=== PATIENT | male | born 1980 | race Caucasian/White ===

== ENCOUNTER 2023-06-03 06:31 | Emergency (ER) | payer SELFPAY ==
[2023-06-03] VITALS (24 sets, daily range): BP systolic 152–173; BP diastolic 93–118; PULSE 78–116; RESP 11–25; TEMP 36.5–36.9; O2SAT 100
--- NOTE | ~2023-06-03 | CT_ITS ---
Non-contrast Head CT History: Head injury Technique: Axial non-contrast imaging of the brain was performed. Dose reduction technique was used on this scan by utilizing automated exposure control and iterative reconstruction technique. The dose -length product (DLP) was 605.33 mGy-cm. Findings: There is no evidence of intracranial hemorrhage, mass lesion, or acute infarct. Brain par enchyma appears normal. The ventricles and subarachnoid spaces are normal in size. The calvarium ap pears normal. The visualized paranasal sinuses and mastoid air cells are clear. Impression: No significant abnormality seen. Reviewed, dictated and finalized at [facility]. [employer] Impression: No significant abnormality seen.
--- NOTE | ~2023-06-03 | CT_ITS ---
CT Facial Bones and Cervical Spine Clinical Indication: Injury Technique: Contiguous axial scans were obtained through the facial bones and cervical spine followed by coronal and sagittal reconstructions. Dose reduction technique was used on this scan by utilizing automated exposure control and iterative reconstruction technique. The dose-length product (DLP) was 253.67 mGy-cm. Findings: CT facial bones: There is a comminuted, mildly displaced fracture of the left mandibular condyle, wit h intra-articular extension at the articular surfaces TMJ.. The visualized paranasal sinuses are amie r. Intraorbital soft tissues appear normal. There is soft tissue swelling over the chin and lower lip , with possible small radiopaque foreign bodies at the lip. CT cervical spine: No fractures or subluxation. Unremarkable visualized bony structures. The interv ertebral disc spaces are preserved. No prevertebral soft tissue swelling. Impression: Comminuted, mildly displaced fracture of the left mandibular condyle with intra-articular extension. Soft tissue swelling over the chin and lower lip with possible small radiopaque foreign bodies. No fracture or subluxation of the cervical spine. Reviewed, dictated and finalized at [facility]. UITING CONSULTANT Impression: Comminuted, mildly displaced fracture of the left mandibular condyle with intra -articular extension. Soft tissue swelling over the chin and lower lip with possible small radiopaque foreign bodies. No fracture or subluxation of the cervical spine.
--- NOTE | ~2023-06-03 | XR_ITS ---
Clinical Indication: Syncope PA and lateral views of the chest: Comparison: None Findings: The lungs are clear, without evidence of focal consolidation or pleural effusion. Cardiome diastinal silhouette is within normal limits. Bones and soft tissues are unremarkable. Impression: Normal chest. Reviewed, dictated and finalized at location . [employer] Impression: Normal chest.
--- NOTE | 2023-06-03 06:43 | ECG_ITS ---
Measurements Intervals [place] Rate: 98 P: 71 LA: 152 QRS: 46 QRSD: 89 T: 70 QT: 367 QTc: 471 Interpretive Statements SINUS RHYTHM BASELINE ARTIFACT PRESENT IN LEAD V3 NO PREVIOUS ECG AVAILABLE FOR COMPARISON Electronically Signed On 06-03-2023 15:42:09 HEAD SOFT SUGAR OPERATOR by Monique Black M.D.
[2023-06-03 06:52] LABS: Basophils Absolute Auto 0.1 K/mm3 (0.0-0.1); Basophils Percent Auto 0.5 % (0.2-1.2); Eosinophils Percent Auto 0.1 % (0-4.4); Hematocrit 41.6 % (42.0-52.0); Hemoglobin 13.3 g/dL (14.0-18.0); Immature Granulocyte Absolute 0.04 K/mm3 (0.00-0.031); Immature Granulocyte Percent A 0.4 % (0-0.5); Lymphocytes Absolute Auto 1.51 K/mm3 (0.9-3.2); Lymphocytes Percent Auto 15.2 % (18.3-44.2); Mean Corpuscular Hemoglobin 34.5 pg (26-34); Mean Corpuscular Volume 108.1 fl (80-100); Monocytes Percent Auto 10.2 % (2.6-8.5); Neutrophils Absolute Auto 7.3 K/mm3 (1.3-6.7); Neutrophils Percent Auto 73.6 % (45.5-73.1); Platelet Count Result 207 k/mm3 (150-375); Red Blood Count 3.85 M/mm3 (4.6-6.20); Red Cell Distribution Width 11.9 % (11.5-14.5); White Blood Count 9.9 K/mm3 (4.5-10.0)
--- NOTE | 2023-06-03 07:05 | ED.SYNCOPE ---
HPI - Syncope General Chief Complaint: Syncope Stated Complaint: syncope yesterday, facial injury Time Seen by Provider: 06/03/23 06:56 History of Present Illness HPI narrative: This is a 42-year-old male, history of hypertension, presents emergency department after syncopal episode yesterday. Patient states he in the preceding 2-3 days, he had some episodes of nonbloody loose stools and occasional cough. Yesterday, he felt lightheaded, loss consciousness and fell in a parking. He states he cut his chin and broke several teeth. He denies associated chest pain, palpitations, weakness or numbness. He now complains of throbbing headache. Related Data Allergies Allergy/AdvReac Type Severity Reaction Status Date / Time latex Allergy Rash Verified 06/03/23 06:33 Review of Systems Review of Systems: CONSTITUTIONAL: Denies fever, chills, or sweats. ENT: Laceration of the lip and chin Denies rhinorrhea, congestion, sore throat, or otalgia. CARDIOVASCULAR: Denies chest pain, palpitations, or edema. RESPIRATORY: Denies cough or dyspnea. GASTROINTESTINAL: Denies abdominal pain, nausea, vomiting, or diarrhea. GENITOURINARY: Denies dysuria or hematuria. SKIN: Denies rash or itching. MUSCULOSKELETAL: Denies back pain, joint pain, or myalgia. NEUROLOGIC: Headache Denies numbness, dizziness, or weakness. PSYCHIATRIC: Denies anxiety or depression. PMFSH Past Medical History Medical History Hypertension Surgical History Surgical History No significant past surgical history Social History Social History Smoking status: Current every day smoker Alcohol intake: current Drinks per week: 21 Substance use: current Substance use type: marijuana Exam Narrative: GENERAL: Well-developed, well-nourished, and in no acute distress. HEAD: Normocephalic, there is a 1/2 cm laceration to the inferior aspect of the midline chin. EYES: PERRLA and EOMI. ENT: Nares clear, no rhinorrhea or epistaxis. Mucous membranes moist. The bilateral upper incisors are fractured without exposed dentin. Oropharynx without tonsillar hypertrophy exudate or other lesions. Bilateral TMs pearly taylor nonbulging. There is a laceration of the inner lower lip NECK: Supple. No midline spine tenderness to palpation, step-off or crepitus CHEST: Clear to auscultation. No respiratory distress. No wheezes rales or rhonchi HEART: Regular rate and rhythm. No murmur heard. Normal peripheral pulses. ABDOMEN: Soft, nontender, nondistended, normal active bowel sounds. EXTREMITIES: Normal range of motion. No edema. SKIN: Warm, dry, no rash. NEURO: Alert and oriented x3. No focal deficit. Moving all 4 limbs spontaneously PSYCH: Normal mood and affect. Course Course Emergency Course: 10:00 - CT head negative for intracranial hemorrhage. CT face demonstrates a left mandible condyle fracture but is otherwise unremarkable. Chemistries demonstrate mild AST/ALT elevation of 28/64 respectively but is otherwise unremarkable. Cbc demonstrates mild anemia with hemoglobin of 13.3 but is otherwise unremarkable. EKG not concerning for arrhythmia or ischemia. Chest x-ray not concerning for acute cardiopulmonary process. CT cervical spine concerning for fracture or dislocation. I suspect the patient's syncopal episode is related to dehydration from diarrhea. He was given IV antibiotics. He tolerated a p.o. challenge without difficulty. Will discharge with oral antibiotics, pain medications and referral for facial surgery. I discussed the findings and recommendations with the patient. Discussed return and emergency precautions including signs/symptoms of airway compromise. The patient voiced understanding and agreement with the plan. All questions answered to his satisfaction. Vital Signs Vital signs: Vital S
[2023-06-03 07:08] LABS: Alanine Aminotransferase 64 U/L (6-50); Alkaline Phosphatase 155 U/L (38-126); Anion Gap 22 mmol/L (8-16); Aspartate Amino Transferase 128 U/L (17-59); Bilirubin,Total 3.2 mg/dL (0.2-1.3); Blood Urea Nitrogen 20 mg/dL (9-20); Calcium 9.9 mg/dL (8.4-10.2); Carbon Dioxide 17 mmol/L (22-30); Chloride 98 mmol/L (98-107); Estimated CRCL calculation 99 ml/min; Estimated Glomerular Filt Rate > 60; Glucose 69 mg/dL (65-110); Potassium 4.2 mmol/L (3.4-5.0); Sodium 137 mmol/L (137-145)
[2023-06-03 07:15] LABS: Platelet Estimate Adequate (Adequate); Schistocytes None Seen (NORMAL); Stomatocytes 1+ (NORMAL)
[2023-06-03] MEDS: SODIUM CHLORIDE 0.9% IV 1,000 ML 999 ML IV CONT (07:34)
[2023-06-03] MEDS: ACETAMINOPHEN 500 MG TABLET 1000 MG PO (07:34)
[2023-06-03] MEDS: ONDANSETRON INJ 4 MG/2 ML VIAL IV PUSH (07:47)
[2023-06-03] MEDS: KETOROLAC 15 MG/ML VIAL (*BKC) IV PUSH (08:09)
[2023-06-03] MEDS: TETANUS,DIPHTHERIA,AC PERTUSSIS ADULT (0.5 ML) BOOSTRIX IM (11:30)
[2023-06-03] MEDS: PROCHLORPERAZINE EDISYLATE 10 MG/2 ML VIAL IV PUSH (11:30)
[2023-06-03] MEDS: oxyCODONE/ACETAMINOPHEN (*CRX) 5-325 MG TABLET 1 TABLET PO (11:31)
== END 2023-06-03 11:47 | disposition home or self-care (01) ==
PROVIDERS: Emergency Medicine; Emergency Provider Preventive Medicine Aerospace Medicine
DX: S06.0X9A Concussion with loss of consciousness of unspecified duration, initial encounter (principal); S01.81XA Laceration without foreign body of other part of head, initial encounter; S01.511A Laceration without foreign body of lip, initial encounter; S02.5XXA Fracture of tooth (traumatic), initial encounter for closed fracture; S02.612A Fracture of condylar process of left mandible, initial encounter for closed fracture; R55 Syncope and collapse; Z23 Encounter for immunization; I10 Essential (primary) hypertension; F17.200 Nicotine dependence, unspecified, uncomplicated; W18.39XA Other fall on same level, initial encounter
CPT/HCPCS: 36415; 70450; 70486; 71046; 72125; 80053; 85025; 90471; 90715; 93005; 96361; 96365; 96375; 99284; A9270; J0780; J1885; J2405; J2540; J7030

== ENCOUNTER 2023-08-02 01:00 | Inpatient (IN) | payer BC, SELFPAY ==
[2023-08-02] VITALS (24 sets, daily range): BP systolic 117–164; BP diastolic 77–96; PULSE 76–113; RESP 10–24; TEMP 36.2–36.9; O2SAT 91–100; BMI 18.4
--- NOTE | ~2023-08-02 | CT_ITS ---
Non-contrast Head CT History: Syncope COMPARISON: 229.4 Technique: Axial non-contrast imaging of the brain was performed. Dose reduction technique was used on this scan by utilizing automated exposure control and iterative reconstruction technique. The dose -length product (DLP) was 756.67 mGy-cm. Findings: There is no evidence of intracranial hemorrhage, mass lesion, or acute infarct. Brain par enchyma appears normal. The ventricles and subarachnoid spaces are normal in size. The calvarium ap pears normal. The visualized paranasal sinuses and mastoid air cells are clear. Impression: No significant abnormality seen. Reviewed, dictated and finalized at location . Impression: No significant abnormality seen.
--- NOTE | ~2023-08-02 | XR_ITS ---
AP view of the pelvis and AP and lateral views of the left hip Clinical history: Pain Findings: There is a comminuted intertrochanteric fracture of the proximal left femur, minimally disp laced.. Bilateral hip and SI joint spaces are preserved. Soft tissues are unremarkable. Impression: Comminuted intertrochanteric fracture of the proximal left femur. Reviewed, dictated and finalized at location . Impression: Comminuted intertrochanteric fracture of the proximal left femur.
--- NOTE | ~2023-08-02 | CT_ITS ---
Noncontrast CT scan of the cervical spine Technique: Multiple contiguous axial [address] images of the cervical spine were obtained and rec onstructed in 2D sagittal and coronal planes on the acquisition scanner. Dose reduction technique was used on this scan by utilizing automated exposure control, adjustment of the mA and/or kV according to patient size. The dose-length product (DLP) was 305.45 mGy-cm. Clinical History: Pain COMPARISON: 06/03/2023 Findings: No fractures or dislocations. Unremarkable visualized bony structures. The intervertebral disc spaces are preserved. No prevertebral soft tissue swelling. Impression: No fracture or subluxation of the cervical spine. Reviewed, dictated and finalized at location . Impression: No fracture or subluxation of the cervical spine.
--- NOTE | ~2023-08-02 | CT_ITS ---
EXAMINATION: CT hip LT wo con DATE: 08/02/2023 08:25 INDICATION: Left hip fracture. TECHNIQUE: Computed tomography (CT) of the left hip was performed without intravenous contrast. Autom ated exposure control and iterative reconstruction technique were employed. The dose-length product w as 416.19 mGy-cm. COMPARISON: Left hip radiograph 08/02/2023 FINDINGS: There is a left inguinal hernia containing fat. There is a comminuted basicervical fracture of the left femoral neck. The greater and lesser trochanters remain attached to the main distal frac ture fragment. The main distal fracture fragment demonstrates impaction and 20 degrees varus angulati on. There is mild left hip osteoarthritis. IMPRESSION: 1. Comminuted basicervical fracture of left femoral neck. 2. Mild left hip osteoarthritis. Reviewed, dictated and finalized at location A.
--- NOTE | ~2023-08-02 | XR_ITS ---
EXAMINATION: XR surgery orthopedic DATE: 08/02/2023 16:14 CDT INDICATION: LEFT IT NAIL . TECHNIQUE: 7 fluoroscopic images of the left hip were obtained during left intertrochanteric nail jeyson cement, performed by Larry Mcguire MD. I was not present during the procedure. Fluoroscopy exposure t helen was 3 minutes 6.2 seconds. Air Kerma 32.261 mGy. DAP 0.6 395 mGym2. COMPARISON: CT left hip 08/02/2023 FINDINGS/IMPRESSION: Fluoroscopic documentation of left intertrochanteric nail placement. Please refer to the operative no te for complete procedural details . Reviewed, dictated and finalized at location K.
--- NOTE | ~2023-08-02 | XR_ITS ---
Portable chest x-ray Comparison: 06/03/2023 Clinical History: Syncope Findings: Lungs are clear, without focal consolidation or pleural effusion. Cardiomediastinal silhou ette is stable. Bones and soft tissues are unremarkable. Impression: Clear lungs. Reviewed, dictated and finalized at location . Impression: Clear lungs.
--- NOTE | 2023-08-02 01:03 | PC.NURSE ---
Bedside glucose is 328.
--- NOTE | 2023-08-02 01:10 | ECG_ITS ---
SEE SCANNED COPY FOR CONFIRMED REPORT MTDD
--- NOTE | 2023-08-02 01:23 | ED.SYNCOPE ---
HPI - Syncope General Chief Complaint: Syncope Stated Complaint: SYNCOPE/COLLAPSE, HIP PAIN Time Seen by Provider: 08/02/23 01:10 Source: patient Mode of arrival: EMS Limitations: no limitations History of Present Illness HPI narrative: This is a 42 year old male that presents to the ER for syncopal episode. Reports he was taking the trash out and passed out. He does not believe he was having any symptoms prior to this. Reports a similar episode a couple of months ago. Reports right hip pain, he has not been able to ambulate due to this. He is unsure if he hit his head. No other injuries or focal areas of pain. Denies chest pain, shortness of breath, vomiting, numbness or weakness. Related Data Allergies Allergy/AdvReac Type Severity Reaction Status Date / Time latex Allergy Rash Verified 08/02/23 01:01 Review of Systems Review of Systems: CONSTITUTIONAL: Denies fever EYES: Denies visual changes CARDIOVASCULAR: Denies chest pain, palpitations RESPIRATORY: Denies dyspnea. GASTROINTESTINAL: Denies vomiting MUSCULOSKELETAL: Reports joint pain, and myalgia. NEUROLOGIC: Denies numbness, or weakness. All systems reviewed & are unremarkable except as noted in HPI and below PMFSH Past Medical History Medical History Hypertension Surgical History Surgical History No significant past surgical history Social History Social History Smoking status: Current every day smoker Alcohol intake: current Drinks per week: 21 Substance use: current Substance use type: marijuana Exam Narrative: GENERAL: Well-appearing, well-nourished, and in mild acute distress due to pain HEAD: Normocephalic, atraumatic. EYES: PERRLA and EOMI. ENT: Nares clear, no rhinorrhea or epistaxis. Mucous membranes moist. Oropharynx without tonsillar hypertrophy exudate or other lesions. Bilateral TMs pearly taylor non-bulging NECK: Supple. No adenopathy or masses. CHEST: Clear to auscultation. No respiratory distress. No wheezes rales or rhonchi HEART: Regular rate and rhythm. No murmur heard. Normal peripheral pulses. EXTREMITIES: Normal range of motion, except decreased active ROM in the left hip. No edema. Normal DP pulse. Normal sensation SKIN: Warm, dry, no rash. NEURO: No focal deficits. Alert and oriented x3. CN II-XII grossly intact PSYCH: Normal mood and affect Course Course Emergency Course: Patient updated on his workup and need for admission Consultations Consultation #1: Spoke with hospitalist about patient and workup who accepts admission. Will continue fluids at 150mls/hr Date: 08/02/23 Consultation #2: Spoke with Dr Mcguire who will consult. Will make patient NPO and add on type and screen Date: 08/02/23 Vital Signs Vital signs: Vital Signs Temperature 98.2 F 08/02/23 00:57 Pulse Rate 99 08/02/23 00:57 Respiratory Rate 24 H 08/02/23 00:57 Blood Pressure 143/88 H 08/02/23 00:57 Pulse Oximetry 100 08/02/23 00:57 Oxygen Delivery Room Air 08/02/23 00:57 Temperature 98.2 F 08/02/23 00:57 Pulse Rate 107 H 08/02/23 03:00 Respiratory Rate 14 08/02/23 03:00 Blood Pressure 164/94 H 08/02/23 03:00 Pulse Oximetry 98 08/02/23 03:00 Oxygen Delivery Room Air 08/02/23 01:02 MDM - Syncope MDM Narrative Medical decision making narrative: Patient presents to the emergency department after syncopal episode today with left hip pain. Patient is neurologically intact. His vitals are stable. CBC without leukocytosis. Shows normocytic anemia hemoglobin of 12.1. Metabolic panel with evidence of dehydration. Patient hydrated with 2 L of IV fluids in the ED. chest x-ray without acute cardiopulmonary abnormality. Left hip x-ray shows comminuted angulated left intertrochanteric fracture. CT brain and cervical spine without acut
[2023-08-02 01:28] LABS: Basophils Percent Auto 0.5 % (0.2-1.2); Hemoglobin 12.1 g/dL (14.0-18.0); Immature Granulocyte Absolute 0.03 K/mm3 (0.00-0.031); Immature Granulocyte Percent A 0.4 % (0-0.5); Lymphocytes Absolute Auto 1.22 K/mm3 (0.9-3.2); Lymphocytes Percent Auto 14.9 % (18.3-44.2); Mean Corpuscular HGB Conc 34.6 g/dl (32-36); Mean Corpuscular Hemoglobin 34.5 pg (26-34); Mean Corpuscular Volume 99.7 fl (80-100); Mean Platelet Volume 11.1 fl (7.4-10.4); Monocytes Absolute Auto 0.9 K/mm3 (0.1-0.6); Monocytes Percent Auto 11.3 % (2.6-8.5); Neutrophils Percent Auto 72.9 % (45.5-73.1); Platelet Count Result 161 k/mm3 (150-375); Red Blood Count 3.51 M/mm3 (4.6-6.20); Red Cell Distribution Width 11.5 % (11.5-14.5); White Blood Count 8.2 K/mm3 (4.5-10.0)
[2023-08-02 01:43] LABS: Alanine Aminotransferase 53 U/L (6-50); Albumin Level 4.5 g/dL (3.5-5.1); Alkaline Phosphatase 119 U/L (38-126); Anion Gap 20 mmol/L (4-12); Aspartate Amino Transferase 108 U/L (17-59); Bilirubin,Total 2.3 mg/dL (0.2-1.3); Blood Urea Nitrogen 29 mg/dL (9-20); Carbon Dioxide 18 mmol/L (22-30); Chloride 93 mmol/L (98-107); Estimated CRCL calculation 63 ml/min; Estimated Glomerular Filt Rate 55; Glucose 278 mg/dL (65-110); Potassium 4.4 mmol/L (3.4-5.0); Sodium 131 mmol/L (137-145)
[2023-08-02 01:43] LABS: Ethanol < 10 mg/dL (<10)
[2023-08-02] MEDS: MORPHINE SULFATE (*CRX) 4 MG/ML INJ IV PUSH (01:46)
[2023-08-02] MEDS: SODIUM CHLORIDE 0.9% IV 1,000 ML 999 ML IV CONT ×2 (01:47→02:13)
[2023-08-02 01:52] LABS: Creatine Kinase 113 U/L (55-170)
[2023-08-02] MEDS: HYDROmorphone HCL INJ (*CRX) 1 MG/ML SYR IV PUSH ×6 (02:14→18:56)
[2023-08-02 02:28] LABS: Troponin I < 0.012 ng/mL (0.000-0.034)
[2023-08-02 03:10] LABS: Beta-Hydroxybutyrate/Acetoacetate 2.38 mmol/L (0.02-0.27)
[2023-08-02] MEDS: SODIUM CHLORIDE 0.9% IV 1,000 ML 150 ML IV CONT ×2 (03:12→13:32)
[2023-08-02 03:13] LABS: Magnesium 1.1 mg/dL (1.6-2.3); Phosphorus 3.4 mg/dL (2.5-4.5)
[2023-08-02 03:14] LABS: Hemoglobin A1C 7.6 % (<5.7)
[2023-08-02 03:19] LABS: Alanine Aminotransferase 47 U/L (6-50); Albumin Level 4.3 g/dL (3.5-5.1); Alkaline Phosphatase 102 U/L (38-126); Anion Gap 12 mmol/L (4-12); Aspartate Amino Transferase 97 U/L (17-59); Bilirubin,Total 2.6 mg/dL (0.2-1.3); Blood Urea Nitrogen 28 mg/dL (9-20); Carbon Dioxide 23 mmol/L (22-30); Chloride 101 mmol/L (98-107); Estimated CRCL calculation 73 ml/min; Estimated Glomerular Filt Rate > 60; Glucose 187 mg/dL (65-110); Potassium 4.1 mmol/L (3.4-5.0); Sodium 136 mmol/L (137-145)
[2023-08-02] MEDS: MAGNESIUM SULF 2 GM/WATER 50ML 2 GM/50 ML BAG IVPB ×2 (03:27→05:46)
[2023-08-02] MEDS: KETOROLAC 30 MG/ML VIAL (*BKC) IV PUSH (04:21)
[2023-08-02] MEDS: PANTOPRAZOLE SODIUM IV 40 MG VIAL IV PUSH (04:21)
--- NOTE | 2023-08-02 04:33 | ADMGEN ---
This patient, Isai August, was admitted to IMU Room 211-01. Patient/family oriented to hospital policies and general routines including ID bracelet, bed and alarms, visiting hours, pain management, procedures, bathroom and other care routines, personal items, smoking policy, room service/diet, and visiting hours. Information on how to activate the Rapid Response Team has been discussed. Patient/Family are encouraged to report perceived risks to care and to ask questions if they do not understand what they are told or what they should do.
[2023-08-02 05:49] LABS: Glucose Point of Care 178 mg/dl (65-105)
[2023-08-02 07:35] LABS: Amphetamine Screen Urine Negative (Negative); Barbiturate Screen Urine Negative (Negative); Benzodiazepines Screen Urine Negative (Negative); Cannabinoid Screen Urine Positive (Negative); Cocaine Screen Urine Negative (Negative); Methadone Screen Urine Negative (Negative); Opiate Screen Urine Positive (Negative); Phencyclidine Screen Urine Negative (Negative)
[2023-08-02 07:52] LABS: Appearance Urine Cloudy (Clear); Bacteria Urine None Seen /hpf; Bilirubin Urine Negative (Negative); Blood Urine Negative (Negative); Calcium Oxalate Crystals Urine Present /hpf; Color Urine Dark Yellow (Yellow); Glucose Urine UA 2+ mg/dL (Negative); Ketones Urine 1+ mg/dL (Negative); Leukocyte Esterase Ur Negative LEU/UL (Negative); Nitrate Urine Negative (Negative); Protein Urine 1+ mg/dL (Negative); RBC Urine 0-2 /hpf (0-2); Specific Grav Ur 1.021 (1.001-1.035); Squamous Epithelial Cell Urine None Seen /hpf (Few); WBC Urine 0-5 /hpf (0-3)
[2023-08-02 08:01] LABS: Hemoglobin 11.9 g/dL (14.0-18.0); Mean Corpuscular Hemoglobin 34.9 pg (26-34); Mean Corpuscular Volume 102.6 fl (80-100); Mean Platelet Volume 11.9 fl (7.4-10.4); Platelet Count Result 152 k/mm3 (150-375); Red Blood Count 3.41 M/mm3 (4.6-6.20); Red Cell Distribution Width 11.9 % (11.5-14.5); White Blood Count 7.7 K/mm3 (4.5-10.0)
[2023-08-02 08:05] LABS: Add Urine Microscopic? YES
[2023-08-02 08:10] LABS: Glucose Point of Care 328 mg/dl (65-105)
--- NOTE | 2023-08-02 08:11 | PM.CNOR ---
Assessment and Plan Assessment and plan (1) Closed intertrochanteric fracture of left hip: Qualifiers: Encounter type: initial encounter Fracture alignment: displaced Qualified Code(s): S72.142A - Displaced intertrochanteric fracture of left femur, initial encounter for closed fracture Code(s): S72.142A - Displaced intertrochanteric fracture of left femur, initial encounter for closed fracture Status: Acute Assessment and Plan: Patient is a 42-year-old male who presented at about 1:00 a.m. after a fall thought to be due to a syncopal episode last evening which resulted in a severely comminuted left intertrochanteric hip fracture with a basicervical component. I asked him why he thinks he became so dehydrated and he noted that on and Wednesday he did have some vomiting and speculated that he may have eaten something that made him sick. On admission he was felt to be very dehydrated. His creatinine was 1.4 and his BUN was 29. He was given 2 L of fluid for resuscitation. Other abnormal labs included total bilirubin 2.7 and AST 101. Normal ALT. Normal alkaline phosphatase. Normal total creatinine kinase. Elevated Beta hydroxybutyrate. We will order protime and APTT. Patient does report drinking 35 drinks per week. Smokes cigarettes , he smokes marijuana. Hemoglobin when initially seen 12.1 and after fluid resuscitation 11.9. Platelets low borderline at [id number]. Normal white count and no signs of infection on urinalysis. Hemoglobin A1c was 7.6. EKG showed no acute changes. Chest x-ray was clear CT scan of his head and neck showed no acute trauma. On examination he is completely alert oriented very pleasant gentleman in no acute distress. He complains of pain around his left hip area which is fairly severe. When asked if he had any other complaints that he has noticed he does have some mild back soreness but emphasizes that is just very mild his lower back. If this becomes worse he will let us know and we will image this area. He denies any other injury. He has intact light touch sensation is left foot but does report chronic history of neuropathy. He had absent proprioception in his great toe on repeated testing. He has 2+ dorsalis pedis and posterior tibial artery pulses palpable on the left without any swelling in the foot her calf or ankle. The left leg is mildly shortened and externally rotated. He will wiggles his toes up and down without difficulty. Impression: Patient has a very comminuted fracture of his left hip. The plain radiographs do not adequately show the degree of comminution and and I have ordered a CT scan to be done of the left hip primarily to assess the head and neck fragment. On the cross-table lateral view we seems to have intact femoral neck attached to the femoral head making this a basicervical component of an intertrochanteric fracture however there may be additional femoral neck comminution. The greater trochanters fractured. There are fracture lines extending to the lesser trochanter. Open reduction internal fixation will be recommended either intramedullary tesha device or sliding hip screw and sideplate device. I discussed him that I would make that decision following CT scan review. I had a long discussion with him about completely giving up smoking. I explained to him that diabetics that have neuropathy that smoke have a very high incidence of severe medical complications including lower extremity amputation heart attack stroke any of which would be extremely debilitating and this is a risk factor he has under his control. He states he was not aware these severe complications that are extremely probable in someone who has longstanding diabetes and is young. He agrees to stop. I have explained to him that he has higher risk of complications because of his smoking and diabetes history specifically with respect to infection and nonunion. He has no personal or family history
[2023-08-02 08:16] LABS: Alanine Aminotransferase 49 U/L (6-50); Albumin Level 4.3 g/dL (3.5-5.1); Alkaline Phosphatase 109 U/L (38-126); Anion Gap 13 mmol/L (4-12); Aspartate Amino Transferase 101 U/L (17-59); Bilirubin,Total 2.7 mg/dL (0.2-1.3); Blood Urea Nitrogen 29 mg/dL (9-20); Calcium 9.2 mg/dL (8.4-10.2); Carbon Dioxide 23 mmol/L (22-30); Chloride 99 mmol/L (98-107); Estimated CRCL calculation 67 ml/min; Estimated Glomerular Filt Rate > 60; Glucose 194 mg/dL (65-110); Potassium 4.1 mmol/L (3.4-5.0); Sodium 135 mmol/L (137-145)
[2023-08-02] MEDS: FAMOTIDINE 20 MG TABLET PO (08:28)
[2023-08-02] MEDS: lisinopriL 10 MG TABLET PO (08:28)
[2023-08-02 09:29] LABS: INR 1.1; Prothrombin Time 14.5 Seconds (11.1-14.7)
[2023-08-02 09:30] LABS: Partial Thromboplastin Time 30.8 Seconds (22.3-36.8)
[2023-08-02] MEDS: ACETAMINOPHEN 500 MG TABLET 1000 MG PO ×3 (10:49→21:42)
[2023-08-02 10:55] LABS: Vitamin D 25 Hydroxy < 12.8 ng/mL
[2023-08-02 11:07] LABS: Glucose Point of Care 165 mg/dl (65-105)
[2023-08-02] MEDS: GABAPENTIN 300 MG CAPSULE PO (12:32)
--- NOTE | 2023-08-02 13:22 | PM.IMHP ---
H&P: HPI History of Present Illness Date/Time: 08/02/23 13:22 Chief Complaint: Dizziness/Fall with injury Narrative: Patient is a 42 year old male how presented to the ED via EMS after a fall at home. Patient stated he was taking out his trash when he became dizzy and did not remember falling, when he cam to it he had severe pain to his left hip and was unable to ambulate. Patient reports a past medical history of diabetes, HTN, neuropathy, and ETOH abuse. In the ED patient was found to have a comminuted LT intertrochanteric hip fracture. Patient denied CP, SOB, N/V, fever, or chills, and dizziniess has resolved. Labs remarkable for mag 1.1 Hgb 11.9, AST 101 and T-ricardo 2.7, otherwise unremarkable. Patient seen by Dr. Mcguire with ortho and surgery scheduled for 1600 today. Patient reported 4-6 drinks a day of liqour but states he has never had withdrawal symptoms in the past currently with no evidence of withdrawal. Patient was admitted to IMU, will initiate CIWA, pain control, and hydration pending surgery. Review of Systems Review of Systems: All systems reviewed & are unremarkable except as noted in HPI and below PMFSH Past Medical History Medical History Hypertension Surgical History Surgical History No significant past surgical history Family History Family History Other Chronic obstructive pulmonary disease Father Colon cancer Grandparent Diabetes mellitus Colon cancer Mother Leukemia Hypertension Social History Social History Smoking packs per day: 0.5 Smoking cigarettes per day: 10.0 Years smoked: 26 Smoking pack-years: 13.00 Smoking status: Current every day smoker Tobacco type: cigarettes Second hand tobacco smoke exposure: Yes Alcohol intake: current Drinks per week: 35 Substance use: current Substance use type: marijuana Last use: 07/31 Do You Feel Safe in your Home?: Yes Lack of Transportation: No Lack of Food: Never True Current Housing: I Have Housing Concerned About Future Housing: No Difficulty Paying Gas/Electric Bills: No Difficulty Paying for Meds: YES Currently Unemployed: No Education: Associate Degree Difficulty w/ Childcare or Family Care: No Spiritual care concerns: No Meds Home Medications and Allergies Home Medications Medication Instructions Recorded Confirmed Type gabapentin 300 mg capsule 300 mg PO Q6H 08/02/23 08/02/23 History lisinopril 10 mg tablet 10 mg PO DAILY 08/02/23 08/02/23 History metformin 500 mg tablet 500 mg PO BIDWMEAL 08/02/23 08/02/23 History Allergies Allergy/AdvReac Type Severity Reaction Status Date / Time latex Allergy Rash Verified 08/02/23 04:54 Vital Signs Vital Signs - 24 hr 08/02/23 00:57 08/02/23 01:02 08/02/23 01:02 Temperature 98.2 F Pulse Rate 99 91 Respiratory Rate 24 H Blood Pressure 143/88 H Pulse Oximetry 100 100 Oxygen Delivery Room Air Room Air 08/02/23 01:46 08/02/23 03:00 08/02/23 03:40 Temperature 98.1 F Pulse Rate 92 107 H 99 Respiratory Rate 23 H 14 16 Blood Pressure 130/91 H 164/94 H 144/96 H Pulse Oximetry 100 98 91 Oxygen Delivery 08/02/23 03:40 08/02/23 04:01 08/02/23 04:00 Temperature Pulse Rate 113 H 113 H Respiratory Rate Blood Pressure Pulse Oximetry Oxygen Delivery Room Air 08/02/23 07:58 08/02/23 07:57 08/02/23 08:00 Temperature 98.0 F Pulse Rate 94 95 Respiratory Rate 18 Blood Pressure 135/88 Pulse Oximetry 96 Oxygen Delivery Room Air 08/02/23 11:31 08/02/23 12:00 Temperature 97.7 F Pulse Rate 96 93 Respiratory Rate 18 Blood Pressure 119/81 Pulse Oximetry 99 Oxygen Delivery Exam Narrative: Physical Exam: GENERA
--- NOTE | 2023-08-02 14:45 | PC.NURSE ---
To OR per [bed ], IV [ fluids infusing]. Report given to [ BECKA Avery @ [id number]].
[2023-08-02] MEDS: VANCOMYCIN 1,000 MG/NS 250 ML 1,000 MG/250 ML BAG 250 MG IVPB (15:00)
--- NOTE | 2023-08-02 15:06 | PCCDE ---
08/01/24: 2:45 -2:50 pm ?? A1C:? 7.6 (08/01) Admitted Intertrochanteric fracture of Left Proximal Femur; h/o +Tobacco, marijuana, ETOH abuse. + DM Admission Screen (08/01) secondary to having trouble taking DM medication and not SMBG. ?RN provided pt with One Touch Verio Flex glucometer at no charge last night. Pt denies need for education/demo on meter due to has done in past, just not recently or regularly. Girlfriend present asking any questions (within scope answered or directed to MD). Team came to take him to OR. ?Unable to discuss further detail re: DM. Provided ?How to Thrive: A Guide for Your Journey with Diabetes? (ADA) and info/flyer re: Outpatient DSMT/MNT. On discharge patient will NEED PRESCRIPTION for One Touch Verio test strips and One Touch Delica Lancets.
[2023-08-02 15:35] LABS: Glucose Point of Care 128 mg/dl (65-105)
[2023-08-02] MEDS: TRANEXAMIC ACID 1,000MG/ISO100 1,000 MG/100 ML BAG 200 MG IVPB (15:36)
--- NOTE | 2023-08-02 15:49 | WPDANESEPPF ---
Anes - Initial Pre Proc Eval Procedure: Operation Date: 08/02/23 16:00 Proposed Procedures p Left Intertrochanteric Nail - Larry Mcguire MD Date/Time: 08/02/23 15:49 Surgeon: Galina Gallo DO Pre Op Diagnosis: Intertrochanteric Fracture LT Proximal Femur Patient Data Age: 42 Gender: M Height: 1.91 m Weight: 66.9 kg Last Vital Signs Temp 36.9 C 08/02/23 15:24 Pulse 92 08/02/23 15:24 Resp 16 08/02/23 15:24 BP 141/91 H 08/02/23 15:24 Pulse Ox 95 08/02/23 15:24 O2 Del Method Room Air 08/02/23 15:24 Allergies Allergy/AdvReac Type Severity Reaction Status Date / Time latex Allergy Rash Verified 08/02/23 15:10 Home Medications Medication Instructions Recorded Confirmed Type gabapentin 300 mg capsule 300 mg PO Q6H 08/02/23 08/02/23 History lisinopril 10 mg tablet 10 mg PO DAILY 08/02/23 08/02/23 History metformin 500 mg tablet 500 mg PO BIDWMEAL 08/02/23 08/02/23 History Laboratory Tests 08/02/23 08/02/23 08/02/23 01:02 01:18 01:20 WBC 8.2 K/mm3 (4.5-10.0) RBC 3.51 L M/mm3 (4.6-6.20) Hgb 12.1 L g/dL (14.0-18.0) Hct 35.0 L % (42.0-52.0) MCV 99.7 fl (80-100) MCH 34.5 H pg (26-34) MCHC 34.6 g/dl (32-36) RDW 11.5 % (11.5-14.5) Plt Count 161 k/mm3 (150-375) MPV 11.1 H fl (7.4-10.4) Immature Gran % (Auto) 0.4 % (0-0.5) Neut % (Auto) 72.9 % (45.5-73.1) Lymph % (Auto) 14.9 L % (18.3-44.2) [place] % (Auto) 11.3 H % (2.6-8.5) Eos % (Auto) 0.0 % (0-4.4) Baso % (Auto) 0.5 % (0.2-1.2) Lymph # (Auto) 1.22 K/mm3 (0.9-3.2) [place] # (Auto) 0.9 H K/mm3 (0.1-0.6) Eos # (Auto) 0.0 K/mm3 (0-0.3) Baso # (Auto) 0.0 K/mm3 (0.0-0.1) Abs Immat Gran (auto) 0.03 K/mm3 (0.00-0.031) Absolute Neuts (auto) 6.0 K/mm3 (1.3-6.7) Absolute Nucleated RBC 0.000 K/mm3 (0.0-0.012) Nucleated RBC % 0.0 % (0.0-0.2) PT INR APTT Sodium 131 L mmol/L (137-145) Potassium 4.4 mmol/L (3.4-5.0) Chloride 93 L mmol/L (98-107) Carbon Dioxide 18 L mmol/L (22-30) Anion Gap 20 H mmol/L (4-12) BUN 29 H mg/dL (9-20) Creatinine 1.40 H mg/dL (0.7-1.3) Estim Creat Clear Calc 63 ml/min Estimated GFR 55 L (59 - ) Glucose 278 H mg/dL (65-110) POC Capillary Glucose 328 H mg/dl (65-105) Hemoglobin A1c 7.6 H % (<5.7) Calcium 10.0 mg/dL (8.4-10.2) Phosphorus 3.4 mg/dL (2.5-4.5) Magnesium 1.1 L mg/dL (1.6-2.3) Total Bilirubin 2.3 H mg/dL (0.2-1.3) AST 108 H U/L (17-59) ALT 53 H U/L (6-50) Alkaline Phosphatase 119 U/L (38-126) Total Creatine Kinase 113 U/L (55-170) Troponin I < 0.012 ng/mL (0.000-0.034) Total Protein 8.0 g/dL (6.3-8.2) Albumin 4.5 g/dL (3.5-5.1) Vitamin D 25-Hydroxy Beta-Hydroxybutyrate/Acetoacetate 2.38 H mmol/L (0.02-0.27) Urine Color Urine Appearance Urine pH Ur Specific [place] Urine Protein Urine Glucose (UA) Urine Ketones Ur Blood (Man) Urine Nitrate Urine Bilirubin Urine Urobilinogen Leukocyte Esterase Rfl Urine RBC Urine WBC Ur Squamous Epith Cells Calcium Oxalate Crystal Urine Bacteria Urine Casts Urine Opiates Screen Urine Methadone Screen Ur Barbiturates Screen Ur Phencyclidine Scrn Ur Amphetamine Screen U Benzodiazepines Sc
--- NOTE | 2023-08-02 15:57 | WPDHPUPDATE1 ---
History and Physical Update Update Date/Time: 08/02/23 15:57 History and Physical has been reviewed, including an updated exam of the patient. There are NO changes in the patient's condition. Risks, benefits, and alternatives have been discussed and questions answered. Patient agrees to proceed with procedure.
[2023-08-02] MEDS: LACTATED RINGERS 1,000 ML 30 ML IV CONT ×2 (16:08→18:46)
[2023-08-02] MEDS: ceFAZolin 2 GM/D5W 50 ML 2 GM/50 ML BAG IVPB ×2 (16:22→23:18)
[2023-08-02] MEDS: ceFAZolin SODIUM 1 GM VIAL (16:48)
[2023-08-02] MEDS: ceFAZolin SODIUM 1 GM VIAL IV PUSH (18:15)
--- NOTE | 2023-08-02 19:01 | W.PM.PROC2 ---
Procedure Note - Detailed Date of Procedure 08/02/23 Pre-op Diagnosis Intertrochanteric Fracture LT Proximal Femur Post-op Diagnosis Same Procedure Performed Open reduction internal fixation comminuted left intertrochanteric basicervical hip fracture Surgeon Larry Mcguire MD Obstetrics Gynecology Physician Erin Perez Anesthesia General Description of Procedure Patient was brought to the operating room and general anesthesia was administered. The left hip was thoroughly scrubbed with the chlorhexidine cloth and shaved with the clippers she received 2 g of Ancef weight based vancomycin 1 g of TXA preoperatively. Fluoro was brought in and we had acceptable alignment with the leg in neutral rotation and longitudinal traction. The majority of the greater trochanter was intact as noted on the CT scan. There was comminution of the anterior margin of the greater trochanter and neck. The left hip and thigh was prepped with Ioban and shower curtain applied. A 4 in longitudinal incision was made over lateral aspect of the proximal thigh just distal to greater trochanter. Fascia was incised in line with the incision. The vastus lateralis was incised about a cm from the posterior inner a muscular septum and a Vogel retractor placed on the femur retracted the muscle. We chose to use the Synthes dynamic hip screw device rather than trans trochanteric nail for this fracture because of comminution at the base of the femoral neck and concern for additional blood supply disruption to the femoral head. Guide pin was inserted low in the center of the femoral head using the 135 degree guide. Fracture was very unstable and this required a little bit of support underneath the proximal thigh to achieve ideal placement which was eventually achieved. I placed a 2.8 mm guide pin from the 7.3 mm cannulated screw set the superior femoral head as an anti rotation pin. We reamed to 95 mm and chose the 95 mm sliding hip screw which is applied to the 2 hole by 135 Synthes DHS plate which was fully seated after insertion of the sliding hip screw to about 8 mm from subchondral bone and the seemed to obtain excellent purchase. Two cortical screws were placed in proximal femoral shaft through the plate both obtaining excellent purchase. The anti rotation pin prevented excessive rotation of the femoral head during screw insertion. I reinserted the anti rotation pin be as close to parallel as possible to the sliding hip screw and we placed an 80 mm 7.3 mm short thread cannulated screw superior to the DHS screw for anti rotation. Final fluoroscopic x-rays were obtained. Wound was thoroughly irrigated with antibiotic solution and the fascia closed with running 1. Vicryl skin with 2 subcutaneous Vicryl and glue EBL was 150. 3rd g Ancef given and 1 amp time of wound closure. Urine Output 0 [facility] Billing Surgery - Charge Forward: Surgery Billing (ORIF basicervical intertrochanteric left hip fracture with dynamic hip screw and sideplate device and anti rotation screw.)
[2023-08-02 19:17] LABS: Glucose Point of Care 148 mg/dl (65-105)
[2023-08-02] MEDS: fentaNYL CITRATE INJ (*CRX) 100 MCG/2 ML VIAL 25 MCG IV PUSH ×2 (19:20→19:45)
[2023-08-02] MEDS: oxyCODONE HCL (*CRX) 5 MG TAB IR PO (20:18)
[2023-08-02] MEDS: SODIUM CHLORIDE 0.9% IV 1,000 ML 125 ML IV CONT (20:18)
[2023-08-02] MEDS: MORPHINE SULFATE (*CRX) 2 MG/ML INJ IV PUSH ×2 (21:42→23:23)
[2023-08-02] MEDS: ERGOCALCIFEROL 50,000 UNITS CAPSULE 50000 UNITS PO (23:18)
[2023-08-03] VITALS (10 sets, daily range): BP systolic 123–157; BP diastolic 77–98; PULSE 79–99; RESP 16–18; TEMP 35.9–37.1; O2SAT 96–100
[2023-08-03] MEDS: GABAPENTIN 300 MG CAPSULE PO ×5 (00:28→23:24)
[2023-08-03] MEDS: oxyCODONE HCL (*CRX) 5 MG TAB IR PO ×7 (00:28→23:24)
[2023-08-03] MEDS: VANCOMYCIN 1,000 MG/NS 250 ML 1,000 MG/250 ML BAG 250 MG IVPB ×2 (03:26→14:38)
[2023-08-03] MEDS: SODIUM CHLORIDE 0.9% IV 1,000 ML 125 ML IV CONT (03:26)
[2023-08-03] MEDS: ACETAMINOPHEN 500 MG TABLET 1000 MG PO ×4 (03:26→21:07)
[2023-08-03] MEDS: MORPHINE SULFATE (*CRX) 2 MG/ML INJ IV PUSH ×3 (04:10→17:35)
[2023-08-03 04:30] LABS: Basophils Percent Auto 0.4 % (0.2-1.2); Eosinophils Percent Auto 0.9 % (0-4.4); Hematocrit 29.1 % (42.0-52.0); Hemoglobin 9.6 g/dL (14.0-18.0); Immature Granulocyte Absolute 0.02 K/mm3 (0.00-0.031); Immature Granulocyte Percent A 0.4 % (0-0.5); Lymphocytes Absolute Auto 1.08 K/mm3 (0.9-3.2); Lymphocytes Percent Auto 23.7 % (18.3-44.2); Mean Corpuscular Hemoglobin 34.5 pg (26-34); Mean Corpuscular Volume 104.7 fl (80-100); Mean Platelet Volume 11.6 fl (7.4-10.4); Monocytes Absolute Auto 0.5 K/mm3 (0.1-0.6); Monocytes Percent Auto 11.9 % (2.6-8.5); Neutrophils Absolute Auto 2.9 K/mm3 (1.3-6.7); Neutrophils Percent Auto 62.7 % (45.5-73.1); Platelet Count Result 94 k/mm3 (150-375); Red Blood Count 2.78 M/mm3 (4.6-6.20); Red Cell Distribution Width 11.3 % (11.5-14.5); White Blood Count 4.6 K/mm3 (4.5-10.0)
[2023-08-03 04:42] LABS: Alanine Aminotransferase 35 U/L (6-50); Albumin Level 3.3 g/dL (3.5-5.1); Alkaline Phosphatase 86 U/L (38-126); Anion Gap 4 mmol/L (4-12); Aspartate Amino Transferase 58 U/L (17-59); Blood Urea Nitrogen 26 mg/dL (9-20); Calcium 8.4 mg/dL (8.4-10.2); Carbon Dioxide 28 mmol/L (22-30); Chloride 97 mmol/L (98-107); Cholesterol 123 mg/dL (0-200); Estimated CRCL calculation 98 ml/min; Estimated Glomerular Filt Rate > 60; Glucose 162 mg/dL (65-110); HDL Direct 42 mg/dL; Magnesium 1.9 mg/dL (1.6-2.3); Potassium 4.3 mmol/L (3.4-5.0); Sodium 129 mmol/L (137-145); Triglycerides 235 mg/dL (<150)
[2023-08-03 04:53] LABS: LDL Cholesterol Direct 58 mg/dL
[2023-08-03 05:30] LABS: Hypochromasia 2+; Platelet Estimate Decreased (Adequate); Schistocytes None Seen
[2023-08-03 08:15] LABS: Glucose Point of Care 156 mg/dl (65-105)
[2023-08-03] MEDS: polyethylene glycoL 3350 17 GM POWD.PACK PO (08:35)
[2023-08-03] MEDS: ceFAZolin 2 GM/D5W 50 ML 2 GM/50 ML BAG IVPB ×2 (08:35→17:26)
[2023-08-03] MEDS: FOLIC ACID 1 MG TABLET PO (08:36)
[2023-08-03] MEDS: THIAMINE HCL 100 MG TABLET PO (08:36)
[2023-08-03] MEDS: PANTOPRAZOLE 40 MG TABLET PO (08:36)
[2023-08-03] MEDS: SENNA/DOCUSATE SODIUM TABLET 2 TAB PO (08:36)
[2023-08-03] MEDS: CALCIUM CITRATE 315 MG/VITAMIN D 6.25 MCG (250 UNITS) TAB 1 TABLET PO ×2 (08:37→17:35)
[2023-08-03] MEDS: APIXABAN 2.5 MG TABLET PO ×2 (08:37→20:09)
[2023-08-03] MEDS: CHOLECALCIFEROL 1,000 UNITS TABLET 2000 UNITS PO (08:37)
[2023-08-03] MEDS: LORazepam (*CRX) 1 MG TABLET PO (08:38)
--- NOTE | 2023-08-03 11:28 | P.CDI_ITS ---
CDI Query Clarification Request BMI 18.4 Nutritional Diagnostic Statement Moderate protein calorie malnutrition related to reduced appetite with inadequate energy intake as evidenced by pt report of poor po intake, a significant weight loss of -8% x 2 months. Please refer to the comprehensive nutrition assessment for further information. Please clarify severity of protein calorie malnutrition if known: * Mild * Moderate * Severe * Other/Unspecified <Sara Peralta RN - Last Filed: 08/03/23 11:31> Clarified Diagnosis Clarified Diagnosis: Moderate protein calorie malnutrition related to reduced appetite with inadequate energy intake as evidenced by pt report of poor po intake, a significant weight loss of -8% x 2 months <Sara Cole APRN - Last Filed: 08/03/23 15:14>
[2023-08-03 11:58] LABS: Glucose Point of Care 175 mg/dl (65-105)
--- NOTE | 2023-08-03 15:13 | PC.NURSE ---
This patient, Isai August, was transferred to [facility] on 08/03/23 at 1513. Personal belongings sent with patient. Report given to BECKA Alvarado Appropriate documentation sent with patient.
--- NOTE | 2023-08-03 15:15 | P.PNIM_ITS ---
Progress Note: A&P Assessment and Plan (1) Closed intertrochanteric fracture of left hip: Qualifiers: Encounter type: initial encounter Fracture alignment: displaced Qualified Code(s): S72.142A - Displaced intertrochanteric fracture of left femur, initial encounter for closed fracture Code(s): S72.142A - Displaced intertrochanteric fracture of left femur, initial encounter for closed fracture Status: Acute (2) Dehydration: Code(s): E86.0 - Dehydration Status: Acute (3) Syncope: Qualifiers: Syncope type: unspecified Qualified Code(s): R55 - Syncope and collapse Code(s): R55 - Syncope and collapse Status: Acute (4) Hypomagnesemia: Code(s): E83.42 - Hypomagnesemia Status: Acute (5) ETOH abuse: Code(s): F10.10 - Alcohol abuse, uncomplicated Status: Acute (6) Tobacco dependence: Code(s): F17.200 - Nicotine dependence, unspecified, uncomplicated Status: Inactive (7) Vitamin D deficiency: Code(s): E55.9 - Vitamin D deficiency, unspecified Status: Acute (8) Diabetes mellitus: Code(s): E11.9 - Type 2 diabetes mellitus without complications Status: Inactive Plan Closed Intertrochanteric LT proximal hip fracture * Ortho consulted * Surgery 08/01 @ 1600 * IV Fluids * NPO * pain control * SCD's * AC post op 23 hours * PT/OT post op * PPI 08/02: * post-op day 1 * eliquis DVT prophylactic will need auth * PT/OT Diabetes * Accu-Cheks a.c. HS * sliding scale insulin * hold oral diabetic medications * resume patient's home long-acting * Hemoglobin A1c goal less than 7.6 * lipid panel pending * Diabetic diet * Optimize Shiv inhibitors and statins. * Watch for hypoglycemia/hypoglycemic protocol ordered ETOH abuse * ETOH<10 * IV fluids * Last drink 24hrs * Thiamine, folic acid, and multi-vitamin daily * PPI daily * Ativan PRN for WD symptoms * Ativan PRN for seizure activity * CIWA daily * Monitor and replenish electrolytes as needed * Seizure precautions if indicated Hypomagnesium * 1.1 * 2 gram administered * F/U daily mag replenish as needed Vitamin-D deficiency * 12.9 * Started on supplement 2000/daily Smoking * smoking cessation education * nicotine patch daily * remove at night * recommend prescription for nicotine patches at discharge HTN * Resumed lisinopril * BP per unit protocol Code status: Full code per patient DVT prophylaxis: SCD's/AC post-op 23hr Stress ulcer prophylaxis: Protonix 40 daily PT/OT notes: PT/OT post-op Disposition: Patient admitted to the medical unit for repair of Fracture LT hip scheduled 08/01 after fall at home. Patient discharge planning will depend on post-op PT/OT recs. Time Spent With Patient Time with patient: 15 - 25 minutes Subjective Date/time seen: 08/03/23 15:15 Interval history: Patient is a 42 year old male how presented to the ED via EMS after a fall at home.? Patient stated he was taking out his trash when he became dizzy and did not remember falling, when he cam to it he had severe pain to his left hip and was unable to ambulate.? Patient reports a past medical history of diabetes, HTN, neuropathy, and ETOH abuse.? In the ED patient was found to have a comminuted LT intertrochanteric hip fracture.? Patient denied CP, SOB, N/V, fever, or chills, and dizziniess
--- NOTE | 2023-08-03 15:15 | PM.IMPN ---
Progress Note: A&P Assessment and Plan (1) Closed intertrochanteric fracture of left hip: Qualifiers: Encounter type: initial encounter Fracture alignment: displaced Qualified Code(s): S72.142A - Displaced intertrochanteric fracture of left femur, initial encounter for closed fracture Code(s): S72.142A - Displaced intertrochanteric fracture of left femur, initial encounter for closed fracture Status: Acute (2) Dehydration: Code(s): E86.0 - Dehydration Status: Acute (3) Syncope: Qualifiers: Syncope type: unspecified Qualified Code(s): R55 - Syncope and collapse Code(s): R55 - Syncope and collapse Status: Acute (4) Hypomagnesemia: Code(s): E83.42 - Hypomagnesemia Status: Acute (5) ETOH abuse: Code(s): F10.10 - Alcohol abuse, uncomplicated Status: Acute (6) Tobacco dependence: Code(s): F17.200 - Nicotine dependence, unspecified, uncomplicated Status: Inactive (7) Vitamin D deficiency: Code(s): E55.9 - Vitamin D deficiency, unspecified Status: Acute (8) Diabetes mellitus: Code(s): E11.9 - Type 2 diabetes mellitus without complications Status: Inactive Plan Closed Intertrochanteric LT proximal hip fracture Ortho consulted Surgery 08/01 @ 1600 IV Fluids NPO pain control SCD's AC post op 23 hours PT/OT post op PPI 08/02: post-op day 1 eliquis DVT prophylactic will need auth PT/OT Diabetes Accu-Cheks a.c. HS sliding scale insulin hold oral diabetic medications resume patient's home long-acting Hemoglobin A1c goal less than 7.6 lipid panel pending Diabetic diet Optimize Shiv inhibitors and statins. Watch for hypoglycemia/hypoglycemic protocol ordered ETOH abuse ETOH<10 IV fluids Last drink 24hrs Thiamine, folic acid, and multi-vitamin daily PPI daily Ativan PRN for WD symptoms Ativan PRN for seizure activity CIWA daily Monitor and replenish electrolytes as needed Seizure precautions if indicated Hypomagnesium 1.1 2 gram administered F/U daily mag replenish as needed Vitamin-D deficiency 12.9 Started on supplement 2000/daily Smoking smoking cessation education nicotine patch daily remove at night recommend prescription for nicotine patches at discharge HTN Resumed lisinopril BP per unit protocol Code status: Full code per patient DVT prophylaxis: SCD's/AC post-op 23hr Stress ulcer prophylaxis: Protonix 40 daily PT/OT notes: PT/OT post-op Disposition: Patient admitted to the medical unit for repair of Fracture LT hip scheduled 08/01 after fall at home. Patient discharge planning will depend on post-op PT/OT recs. Time Spent With Patient Time with patient: 15 - 25 minutes Subjective Date/time seen: 08/03/23 15:15 Interval history: Patient is a 42 year old male how presented to the ED via EMS after a fall at home.? Patient stated he was taking out his trash when he became dizzy and did not remember falling, when he cam to it he had severe pain to his left hip and was unable to ambulate.? Patient reports a past medical history of diabetes, HTN, neuropathy, and ETOH abuse.? In the ED patient was found to have a comminuted LT intertrochanteric hip fracture.? Patient denied CP, SOB, N/V, fever, or chills, and dizziniess has resolved. Labs remarkable for mag 1.1 Hgb 11.9, AST 101 and T-ricardo 2.7, otherwise unremarkable.? Patient seen by Dr. Mcguire with ortho and surgery scheduled for 1600 today.? Patient reported 4-6 drinks a day of liqour but states he has never had withdrawal symptoms in the past currently with no evidence of withdrawal.? Patient was admitted to IMU, will initiate CIWA, pain control, and hydration pending surgery. 08/02: Patient post-op day one doing well and tolerating PT/OT with mild but controlled pain. No other complaints at this time. CC consulted for joshua pendleton
--- NOTE | 2023-08-03 17:09 | PM.PNORT ---
Progress Note: A&P Assessment and Plan (1) Closed intertrochanteric fracture of left hip: Qualifiers: Encounter type: initial encounter Fracture alignment: displaced Qualified Code(s): S72.142A - Displaced intertrochanteric fracture of left femur, initial encounter for closed fracture Code(s): S72.142A - Displaced intertrochanteric fracture of left femur, initial encounter for closed fracture Status: Acute Assessment and Plan: PATIENT WAS UP WALKING WITH A WALKER IN HIS ROOM WHEN I CAME IN. HE DID WELL WITH PHYSICAL THERAPY THEY TAUGHT HIM TOUCH WEIGHT-BEARING. HE ADMITS THAT HE HAS PUT TOO MUCH WEIGHT ON IT FEW TIMES TODAY AND IT HURTS WHEN HE DOES THAT. I HAD A LONG DISCUSSION WITH HIM ABOUT THE FACT THAT IT WILL BE CRITICAL FOR HIM TO MAINTAIN TOUCH WEIGHT-BEARING STATUS UNTIL TOLD TO ADVANCE WHICH WILL BE AT LEAST 6 WEEKS. THE DEGREE OF COMMINUTION AND THE FEMORAL NECK PUTS HIM AT RISK FOR SHORTENING. FOR THIS REASON I WOULD RECOMMEND THAT HE NOT DRINK. I EXPLAINED TO HIM HOW DRINKING WILL RESULT IN HIM BEING A LITTLE BIT MORE CARELESS AND WILL PROMOTE ACCIDENTALLY PUTTING TOO MUCH WEIGHT ON IT MORE FREQUENTLY. WE AGAIN DISCUSSED THE IMPORTANCE OF COMPLETE AVOIDANCE OF SMOKING BECAUSE OF THE NEGATIVE AFFECT ON HEALING. HIS LABS THIS MORNING SHOW THAT HIS PLATELETS ARE DIMINISHED AT 94,000. HIS HEMOGLOBIN IS 9.6. HIS RENAL FUNCTION IS NOW COMPLETELY NORMAL. WE WILL CHECK A CBC IN THE MORNING. HIS MEPILEX DRESSING A 2 CM DIAMETER SPOT OF BLOOD ON IT. WE WILL PROBABLY CHANGE THIS TOMORROW PRIOR TO DISCHARGE. HIS SODIUM IS DECREASED 129. WE WILL CHECK ANOTHER BMP IN THE MORNING WELL. Subjective Subjective Date/Time Seen: 08/03/23 17:09 Objective Data Vital Signs Vital Signs: Vital Signs - 24 hr 08/02/23 18:46 08/02/23 19:00 08/02/23 19:15 Temperature 36.4 C Pulse Rate 88 85 83 Pulse Rate [Left Pedal (Dorsalis Pedis) Palpation] Respiratory Rate 10 L 15 14 Blood Pressure 117/80 138/82 127/86 Pulse Oximetry 100 99 95 Oxygen Delivery Simple Face Mask Simple Face Mask Room Air Oxygen Flow Rate 8 8 08/02/23 19:01 08/02/23 19:26 08/02/23 19:30 Temperature Pulse Rate 76 Pulse Rate [Left Pedal (Dorsalis Pedis) Palpation] Respiratory Rate 14 Blood Pressure 120/89 Pulse Oximetry 98 92 98 Oxygen Delivery Room Air Nasal Cannula Nasal Cannula Oxygen Flow Rate 2 2 08/02/23 19:39 08/02/23 20:02 08/02/23 20:00 Temperature 36.2 C L Pulse Rate 78 83 Pulse Rate [Left Pedal (Dorsalis Pedis) Palpation] 83 Respiratory Rate 12 16 Blood Pressure 138/78 136/89 136/89 Pulse Oximetry 99 100 Oxygen Delivery Nasal Cannula Oxygen Flow Rate 2 08/02/23 20:33 08/02/23 20:00 08/02/23 20:00 Temperature 36.5 C Pulse Rate 85 81 Pulse Rate [Left Pedal (Dorsalis Pedis) Palpation] Respiratory Rate 16 Blood Pressure 136/93 H Pulse Oximetry 94 94 Oxygen Delivery Nasal Cannula Oxygen Flow Rate 2 08/02/23 22:00 08/02/23 23:58 08/03/23 00:00 Temperature 36.4 C 36.4 C Pulse Rate 105 H 91 Pulse Rate [Left Pedal (Dorsalis Pedis) Palpation] 99 Respiratory Rate 16 16 Blood Pressure 146/92 H 123/77 123/77 Pulse Oximetry 100 99 Oxygen Delivery Oxygen Flow Rate 08/03/23 00:00 08/03/23 04:09 08/03/23 04:00 Temperature 36.1 C L Pulse Rate 93 79 Pulse Rate [Left Pedal (Dorsalis Pedis) Palpation] 99 Respiratory Rate 16 Blood Pressure 143/90 H 143/90 H Pulse Oximetry 99 Oxygen Delivery Oxygen Flow Rate 08/03/23 04:00 08/03/23 07:59 08/03/23 07:57 Temperature 35.9 C L Pulse Rate 83 84 Pulse Rate [Left Pedal (Dorsalis Pedis) Palpation] Respiratory Rate 18 Blood Pressure 146/89 H Pulse Oximetry 98 96 Oxygen Delivery Room Air Oxygen Flow Rate 08/03/23 08:45 08/03/23 08:00 08/03/23 08:00 Temperature Pulse Rate 98 Pulse Rate [Left Pedal (Dorsalis Pedis) Palpation] 98 Respiratory Rate
[2023-08-03 17:10] LABS: Glucose Point of Care 265 mg/dl (65-105)
[2023-08-03] MEDS: INSULIN ASPART (*BKC) 100 UNITS/ML SUB-Q (17:28)
[2023-08-03] MEDS: CEFDINIR 300 MG CAPSULE PO (20:09)
[2023-08-03 20:42] LABS: Glucose Point of Care 90 mg/dl (65-105)
[2023-08-04] VITALS (10 sets, daily range): BP systolic 75–153; BP diastolic 52–97; PULSE 87–180; RESP 16–20; TEMP 36.3–37.2; O2SAT 96–98
--- NOTE | 2023-08-04 | ECHO_ITS ---
Patient Info Name: Isai August Age: 42 years : 1980 Gender: Male Ht: 75 in Wt: 169 lbs BSA: 2.01 m2 HR: 90 bpm BP: 75 / 52 mmHg Heart Rhythm: Sinus Rhythm Technical Quality: Good Exam Date: 08/04/2023 10:55 AM Exam Location: Echo Lab Patient Status: Inpatient Admit Date: 08/02/2023 Staff Ordering Physician: Sara Cole APRN Wool Scourer: Ramakrishna Gerardo RD Attending Provider: Galina Gallo DO Exam Type: CA echo doppler color flow Study Info Indications - Elevated Heart Rate Complete two-dimensional, color flow and Doppler transthoracic echocardiogram is performed. Summary 1. Left ventricular chamber dimension is normal. 2. Left ventricular systolic function is normal, estimated at 50-55%. 3. The left ventricular diastolic function is normal. 4. Right ventricular systolic function is normal. 5. No significant valvular disease. Left Ventricle Left ventricular chamber dimension is normal. Left ventricular systolic function is normal, estimated at 50-55%. There is no increased left ventricular wall thickness. The left ventricular diastolic function is normal. Right Ventricle Right ventricular chamber dimension is normal. Right ventricular systolic function is normal. Left Atria Left atrial chamber dimension is normal. Right Atria Right atrial chamber dimension is normal. Atrial Septum Intact interatrial septum visualized by color flow imaging. Aortic Valve There is no aortic valve stenosis. There is trace aortic valve regurgitation. Pulmonic Valve The pulmonic valve is not well visualized. There is trace pulmonic regurgitation. Mitral Valve There is trace mitral valve regurgitation. Tricuspid Valve There is trace tricuspid valve regurgitation. Pericardium/Pleural There is no pericardial effusion. Inferior Vena Cava Normal inferior vena cava with >50% collapse upon inspiration consistent with normal right atrial pressure, 3 mmHg. Aorta The aortic root size at the sinus of Valsalva is normal. Left Ventricular Outflow Tract Name Value Normal LVOT 2D LVOT Diameter 2.2 cm LVOT Doppler LVOT Peak Velocity 93 cm/s LVOT Peak Gradient 3 mmHg LVOT Mean Gradient 2 mmHg LVOT VTI 16 cm LVOT VTI/AV VTI Ratio 0.9 LVOT Stroke Volume 63 ml LVOT CO 5.2 l/min LVOT CI 2.6 l/min/m2 Pulmonic Valve Name Value Normal RVOT Doppler RVOT Peak Gradient 2 mmHg PV Doppler PV Peak Velocity 72 cm/s PV Peak Gradient 2 mmHg Mitral Valve Name
[2023-08-04] MEDS: oxyCODONE HCL (*CRX) 5 MG TAB IR PO ×6 (04:04→23:14)
[2023-08-04] MEDS: ACETAMINOPHEN 500 MG TABLET 1000 MG PO ×4 (04:04→21:20)
[2023-08-04 05:36] LABS: Basophils Percent Auto 0.5 % (0.2-1.2); Eosinophils Percent Auto 0.9 % (0-4.4); Hematocrit 25.9 % (42.0-52.0); Hemoglobin 8.8 g/dL (14.0-18.0); Immature Granulocyte Absolute 0.01 K/mm3 (0.00-0.031); Immature Granulocyte Percent A 0.2 % (0-0.5); Immature Platelet Fraction Pct 9.3 % (0.9-11.2); Lymphocytes Absolute Auto 0.84 K/mm3 (0.9-3.2); Lymphocytes Percent Auto 19.8 % (18.3-44.2); Mean Corpuscular Hemoglobin 34.6 pg (26-34); Mean Platelet Volume 11.2 fl (7.4-10.4); Monocytes Absolute Auto 0.6 K/mm3 (0.1-0.6); Monocytes Percent Auto 14.4 % (2.6-8.5); Neutrophils Absolute Auto 2.7 K/mm3 (1.3-6.7); Neutrophils Percent Auto 64.2 % (45.5-73.1); Platelet Count Result 94 k/mm3 (150-375); Red Blood Count 2.54 M/mm3 (4.6-6.20); White Blood Count 4.2 K/mm3 (4.5-10.0)
[2023-08-04 05:43] LABS: Alanine Aminotransferase 29 U/L (6-50); Albumin Level 3.3 g/dL (3.5-5.1); Alkaline Phosphatase 91 U/L (38-126); Anion Gap 4 mmol/L (4-12); Aspartate Amino Transferase 69 U/L (17-59); Blood Urea Nitrogen 15 mg/dL (9-20); Calcium 9.1 mg/dL (8.4-10.2); Carbon Dioxide 28 mmol/L (22-30); Chloride 96 mmol/L (98-107); Estimated CRCL calculation 127 ml/min; Estimated Glomerular Filt Rate > 60; Glucose 178 mg/dL (65-110); Magnesium 1.3 mg/dL (1.6-2.3); Potassium 4.4 mmol/L (3.4-5.0); Sodium 128 mmol/L (137-145)
[2023-08-04] MEDS: GABAPENTIN 300 MG CAPSULE PO ×4 (05:46→23:13)
--- NOTE | 2023-08-04 07:07 | PM.PNORT ---
Progress Note: A&P Assessment and Plan (1) Closed intertrochanteric fracture of left hip: Qualifiers: Encounter type: initial encounter Fracture alignment: displaced Qualified Code(s): S72.142A - Displaced intertrochanteric fracture of left femur, initial encounter for closed fracture Code(s): S72.142A - Displaced intertrochanteric fracture of left femur, initial encounter for closed fracture Status: Acute Assessment and Plan: Patient is postop day 2. After open reduction internal fixation of comminuted basicervical intertrochanteric left hip fracture. He is alert and oriented. His wound has no obvious drainage today but we will change the Mepilex dressing as the blood has reached the edge in 1 area. He has moderate ecchymosis around the wound but no visible focal swelling to suggest hematoma. His laboratory studies show white count of 4.2 hemoglobin 8.8 and platelets unchanged at 94,000 four thousand. This indicates that he does have likely some bone marrow suppression from his alcoholism causing a pancytopenia. He feels that he is still weak and would like to stay another day rather than going home today. His hyponatremia is only slightly worse sodium 128. Recheck labs in a.m.. Subjective Subjective Date/Time Seen: 08/04/23 07:07 Objective Data Vital Signs Vital Signs: Vital Signs - 24 hr 08/03/23 07:59 08/03/23 07:57 08/03/23 08:45 Temperature 35.9 C L Pulse Rate 84 Pulse Rate [Left Pedal (Dorsalis Pedis) Palpation] Respiratory Rate 18 Blood Pressure 146/89 H Pulse Oximetry 98 96 Oxygen Delivery Room Air Room Air 08/03/23 08:00 08/03/23 08:00 08/03/23 11:51 Temperature 35.9 C L Pulse Rate 98 93 Pulse Rate [Left Pedal (Dorsalis Pedis) Palpation] 98 Respiratory Rate 18 Blood Pressure 137/91 H Pulse Oximetry 100 Oxygen Delivery 08/03/23 16:41 08/03/23 16:00 08/03/23 20:28 Temperature 36.4 C 37.1 C Pulse Rate 88 95 Pulse Rate [Left Pedal (Dorsalis Pedis) Palpation] 98 Respiratory Rate 18 18 Blood Pressure 157/98 H 157/98 H 137/89 Pulse Oximetry 99 97 Oxygen Delivery 08/03/23 20:00 Temperature Pulse Rate Pulse Rate [Left Pedal (Dorsalis Pedis) Palpation] Respiratory Rate Blood Pressure Pulse Oximetry Oxygen Delivery Room Air Intake/Output Intake/Output: Intake & Output 08/01/23 08/02/23 08/03/23 08/04/23 23:59 23:59 23:59 23:59 Intake Total 3150 4051.7 Output Total 0 1001 400 Balance 3150 3050.7 -400 Meds/Results Medications: Active Medications Generic Name Dose Route Start Last Admin Trade Name Freq PRN Reason Stop Dose Admin Acetaminophen 1,000 mg 08/02/23 22:00 08/04/23 04:04 Acetaminophen 500 Mg Tablet PO 1,000 mg Q6H ANKIT Administration Apixaban 2.5 mg 08/03/23 09:00 08/03/23 20:09 Apixaban 2.5 Mg Tablet PO 2.5 mg Q12HR ANKIT Administration Calcium Citrate 1 tablet 08/03/23 09:00 08/03/23 17:35 Calcium Citrate 315 Mg/Vitamin D 6.25 Mcg (250 Units) Tab PO 1 tablet BID ANKIT Administration Cefdinir 300 mg 08/03/23 21:00 08/03/23 20:09 Cefdinir 300 Mg Capsule PO 300 mg Q12HR ANKIT Administration Dextrose 12.5 gm 08/02/23 08:07 Dextrose 50% 25 Gm/50 Ml Syringe IV PUSH PRN PRN Hypoglycemia Protocol Ergocalciferol 50,000 units 08/02/23 09:00 08/02/23 23:18 Ergocalciferol 50,000 Units Capsule PO 09/06/23 09:01 50,000 units WEEKLY ANKIT Administration Folic Acid 1 mg 08/03/23 09:00 08/03/23 08:36 Folic Acid 1 Mg Tablet PO 1 mg DAILY ANKIT Administration Gabapentin 300 mg 08/02/23 12:00 08/04/23 05:46 Gabapentin 300 Mg Capsule PO 300 mg Q6HR ANKIT Administration Glucagon 1 mg 08/02/23 08:07 Glucagon For Inj 1 Mg Vial IM PRN PRN Hypoglycemia Protocol Glucose 15 gm 08/02/23 08:07 Glucose Oral Gel 15 Gm Of Glucse In 37.5 Gm Tube PO PRN PRN Hypoglycemia Protocol
[2023-08-04 08:21] LABS: Glucose Point of Care 180 mg/dl (65-105)
--- NOTE | 2023-08-04 08:35 | P.PNIM_ITS ---
Progress Note: A&P Assessment and Plan (1) Closed intertrochanteric fracture of left hip: Qualifiers: Encounter type: initial encounter Fracture alignment: displaced Qualified Code(s): S72.142A - Displaced intertrochanteric fracture of left femur, initial encounter for closed fracture Code(s): S72.142A - Displaced intertrochanteric fracture of left femur, initial encounter for closed fracture Status: Acute (2) Dehydration: Code(s): E86.0 - Dehydration Status: Acute (3) Syncope: Qualifiers: Syncope type: unspecified Qualified Code(s): R55 - Syncope and collapse Code(s): R55 - Syncope and collapse Status: Acute (4) Hypomagnesemia: Code(s): E83.42 - Hypomagnesemia Status: Acute (5) ETOH abuse: Code(s): F10.10 - Alcohol abuse, uncomplicated Status: Acute (6) Tobacco dependence: Code(s): F17.200 - Nicotine dependence, unspecified, uncomplicated Status: Inactive (7) Vitamin D deficiency: Code(s): E55.9 - Vitamin D deficiency, unspecified Status: Acute (8) Diabetes mellitus: Code(s): E11.9 - Type 2 diabetes mellitus without complications Status: Inactive (9) Paroxysmal SVT (supraventricular tachycardia): Code(s): I47.10 - Supraventricular tachycardia, unspecified Status: Acute Plan SVT * episode x1 EKG 166 SVT * Patient reports rapid HR at home occasionally never had a workup * 5mg lopressor IVP/10 cardizem IVP Converted back to SR * TSH WNL * Mag 1.3 replenished with 2 gram * Echo pending * Cardiology consulted * may need Holter monitor at discharge Closed Intertrochanteric LT proximal hip fracture * Ortho consulted * Surgery 08/01 @ 1600 * IV Fluids * NPO * pain control * SCD's * AC post op 23 hours * PT/OT post op * PPI 08/02: * post-op day 1 * eliquis DVT prophylactic will need auth * PT/OT Diabetes * Accu-Cheks a.c. HS * sliding scale insulin * hold oral diabetic medications * resume patient's home long-acting * Hemoglobin A1c goal less than 7.6 * lipid panel pending * Diabetic diet * Optimize Shiv inhibitors and statins. * Watch for hypoglycemia/hypoglycemic protocol ordered ETOH abuse * ETOH<10 * IV fluids * Last drink 24hrs * Thiamine, folic acid, and multi-vitamin daily * PPI daily * Ativan PRN for WD symptoms * Ativan PRN for seizure activity * CIWA daily * Monitor and replenish electrolytes as needed * Seizure precautions if indicated Hypomagnesium * 1.1 * 2 gram administered * F/U daily mag replenish as needed Vitamin-D deficiency * 12.9 * Started on supplement 2000/daily Smoking * smoking cessation education * nicotine patch daily * remove at night * recommend prescription for nicotine patches at discharge HTN * Resumed lisinopril * BP per unit protocol Code status: Full code per patient DVT prophylaxis: SCD's/AC post-op 23hr Stress ulcer prophylaxis: Protonix 40 daily PT/OT notes: PT/OT post-op Disposition: Patient admitted to the medical unit for repair of Fracture LT hip scheduled 08/01 after fall at home. Patient discharge to home with O/P PT/OT. Continues admission following episode of SVT. Time Spent With Patient Time with patient: 15 - 25 minutes Subjective Date/time seen: 08/04/23 08:35 Interval history:
--- NOTE | 2023-08-04 08:35 | PM.IMPN ---
Progress Note: A&P Assessment and Plan (1) Closed intertrochanteric fracture of left hip: Qualifiers: Encounter type: initial encounter Fracture alignment: displaced Qualified Code(s): S72.142A - Displaced intertrochanteric fracture of left femur, initial encounter for closed fracture Code(s): S72.142A - Displaced intertrochanteric fracture of left femur, initial encounter for closed fracture Status: Acute (2) Dehydration: Code(s): E86.0 - Dehydration Status: Acute (3) Syncope: Qualifiers: Syncope type: unspecified Qualified Code(s): R55 - Syncope and collapse Code(s): R55 - Syncope and collapse Status: Acute (4) Hypomagnesemia: Code(s): E83.42 - Hypomagnesemia Status: Acute (5) ETOH abuse: Code(s): F10.10 - Alcohol abuse, uncomplicated Status: Acute (6) Tobacco dependence: Code(s): F17.200 - Nicotine dependence, unspecified, uncomplicated Status: Inactive (7) Vitamin D deficiency: Code(s): E55.9 - Vitamin D deficiency, unspecified Status: Acute (8) Diabetes mellitus: Code(s): E11.9 - Type 2 diabetes mellitus without complications Status: Inactive (9) Paroxysmal SVT (supraventricular tachycardia): Code(s): I47.10 - Supraventricular tachycardia, unspecified Status: Acute Plan SVT episode x1 EKG 166 SVT Patient reports rapid HR at home occasionally never had a workup 5mg lopressor IVP/10 cardizem IVP Converted back to SR TSH WNL Mag 1.3 replenished with 2 gram Echo pending Cardiology consulted may need Holter monitor at discharge Closed Intertrochanteric LT proximal hip fracture Ortho consulted Surgery 08/01 @ 1600 IV Fluids NPO pain control SCD's AC post op 23 hours PT/OT post op PPI 08/02: post-op day 1 eliquis DVT prophylactic will need auth PT/OT Diabetes Accu-Cheks a.c. HS sliding scale insulin hold oral diabetic medications resume patient's home long-acting Hemoglobin A1c goal less than 7.6 lipid panel pending Diabetic diet Optimize Shiv inhibitors and statins. Watch for hypoglycemia/hypoglycemic protocol ordered ETOH abuse ETOH<10 IV fluids Last drink 24hrs Thiamine, folic acid, and multi-vitamin daily PPI daily Ativan PRN for WD symptoms Ativan PRN for seizure activity CIWA daily Monitor and replenish electrolytes as needed Seizure precautions if indicated Hypomagnesium 1.1 2 gram administered F/U daily mag replenish as needed Vitamin-D deficiency 12.9 Started on supplement 2000/daily Smoking smoking cessation education nicotine patch daily remove at night recommend prescription for nicotine patches at discharge HTN Resumed lisinopril BP per unit protocol Code status: Full code per patient DVT prophylaxis: SCD's/AC post-op 23hr Stress ulcer prophylaxis: Protonix 40 daily PT/OT notes: PT/OT post-op Disposition: Patient admitted to the medical unit for repair of Fracture LT hip scheduled 08/01 after fall at home. Patient discharge to home with O/P PT/OT. Continues admission following episode of SVT. Time Spent With Patient Time with patient: 15 - 25 minutes Subjective Date/time seen: 08/04/23 08:35 Interval history: Patient is a 42 year old male how presented to the ED via EMS after a fall at home.? Patient stated he was taking out his trash when he became dizzy and did not remember falling, when he cam to it he had severe pain to his left hip and was unable to ambulate.? Patient reports a past medical history of diabetes, HTN, neuropathy, and ETOH abuse.? In the ED patient was found to have a comminuted LT intertrochanteric hip fracture.? Patient denied CP, SOB, N/V, fever, or chills, and dizziniess has resolved. Labs remarkable for mag 1.1 Hgb 11.9, AST 101 and T-ricardo 2.7, otherwise unremarkable.? Patient seen by Dr. Mcguire with ortho
[2023-08-04] MEDS: THIAMINE HCL 100 MG TABLET PO (09:20)
[2023-08-04] MEDS: APIXABAN 2.5 MG TABLET PO ×2 (09:21→20:16)
[2023-08-04] MEDS: FOLIC ACID 1 MG TABLET PO (09:21)
[2023-08-04] MEDS: CHOLECALCIFEROL 1,000 UNITS TABLET 2000 UNITS PO (09:21)
[2023-08-04] MEDS: PANTOPRAZOLE 40 MG TABLET PO (09:21)
[2023-08-04] MEDS: CEFDINIR 300 MG CAPSULE PO ×2 (09:36→20:16)
[2023-08-04] MEDS: CALCIUM CITRATE 315 MG/VITAMIN D 6.25 MCG (250 UNITS) TAB 1 TABLET PO ×2 (09:36→17:10)
[2023-08-04] MEDS: MAGNESIUM SULF 2 GM/WATER 50ML 2 GM/50 ML BAG IVPB (09:38)
[2023-08-04] MEDS: LORazepam INJ (*CRX) 2 MG/ML VIAL 1 MG IV PUSH (09:48)
--- NOTE | 2023-08-04 09:48 | PCPTNOTE ---
Attempted to see patient for PT treatment, however patient's HR 188bpm. RN in room monitoring HR. PT will await improved HR and BP before PT treatment.
--- NOTE | 2023-08-04 09:49 | ECG_ITS ---
SEE SCANNED COPY FOR CONFIRMED REPORT. MTDD
[2023-08-04] MEDS: METOPROLOL TARTRATE INJ 5 MG/5 ML VIAL IV PUSH (10:01)
[2023-08-04] MEDS: dilTIAZem HCl INJ 25 MG/5 ML VIAL 10 MG IV PUSH (10:14)
[2023-08-04] MEDS: SODIUM CHLORIDE 0.9% IV 1,000 ML 999 ML IV CONT (10:19)
[2023-08-04 12:04] LABS: Glucose Point of Care 226 mg/dl (65-105)
[2023-08-04] MEDS: INSULIN ASPART (*BKC) 100 UNITS/ML SUB-Q ×2 (12:52→17:12)
--- NOTE | 2023-08-04 13:39 | PM.CNCAR ---
Assessment and Plan Assessment and plan (1) Paroxysmal SVT (supraventricular tachycardia): Code(s): I47.10 - Supraventricular tachycardia, unspecified Status: Acute Assessment and Plan: Keep electrolytes optimized. Echocardiogram ordered and pending. Will start Toprol 50mg once daily. Obtain 30 day monitor upon discharge (order already placed). Outpatient follow up with us in clinic will be arranged. (2) Hypomagnesemia: Code(s): E83.42 - Hypomagnesemia Status: Acute Assessment and Plan: Keep Magnesium >2. History of Present Illness History of Present Illness Consult date/time: 08/04/23 13:39 Requesting physician: Sara Cole APRN Consult reason: Other (SVT) Reason For Visit: Intertrochanteric Fracture LT Proximal Femur Narrative: We are consulted for SVT. This is a 42 year old male with diabetes, hypertension, alcohol abuse who underwent open reduction internal fixation for comminuted left interotrochanteric hip fracture on 08/01. This morning, he had a a 23 minute episode of SVT. [place] palpitations at that time. No chest pain or shortness of breath. No prior cardiac history, but patient reports that he gets palpitations about once a month that can last up to an hour or so. He is currently in sinus rhythm at the time of my evaluation. TSH level is normal. Magnesium level is 1.3 Review of Systems Review of Systems: All systems reviewed & are unremarkable except as noted in HPI and below (HPI) PMFSH Past Medical History Medical History Diabetes mellitus Hypertension Tobacco dependence Surgical History Surgical History H/O hernia repair S/P ACL repair Family History Family History Other Chronic obstructive pulmonary disease Father Colon cancer Grandparent Diabetes mellitus Colon cancer Mother Leukemia Hypertension Social History Social History Smoking packs per day: 0.5 Smoking cigarettes per day: 10.0 Years smoked: 26 Smoking pack-years: 13.00 Smoking status: Current every day smoker Tobacco type: cigarettes Second hand tobacco smoke exposure: Yes Alcohol intake: current Drinks per week: 35 Substance use: current Substance use type: marijuana Last use: 07/31 Do You Feel Safe in your Home?: Yes Lack of Transportation: No Lack of Food: Never True Current Housing: I Have Housing Concerned About Future Housing: No Difficulty Paying Gas/Electric Bills: No Difficulty Paying for Meds: YES Currently Unemployed: No Education: Associate Degree Difficulty w/ Childcare or Family Care: No Spiritual care concerns: No Meds Home Medications and Allergies Home Medications Medication Instructions Recorded Confirmed Type gabapentin 300 mg capsule 300 mg PO Q6H 08/02/23 08/02/23 History lisinopril 10 mg tablet 10 mg PO DAILY 08/02/23 08/02/23 History metformin 500 mg tablet 500 mg PO BIDWMEAL 08/02/23 08/02/23 History Allergies Allergy/AdvReac Type Severity Reaction Status Date / Time latex Allergy Rash Verified 08/02/23 15:10 Vital Signs Vital Signs - 24 hr 08/03/23 16:41 08/03/23 16:00 08/03/23 20:28 Temperature 36.4 C 37.1 C Pulse Rate 88 95 Pulse Rate [Left Pedal (Dorsalis Pedis) Palpation] 98 Respiratory Rate 18 18 Blood Pressure 157/98 H 157/98 H 137/89 Pulse Oximetry 99 97 Oxygen Delivery 08/03/23 20:00 08/04/23 00:45 08/04/23 05:00 Temperature 36.8 C 37.2 C Pulse Rate 93 92 Pulse Rate [Left Pedal (Dorsalis Pedis) Palpation] Respiratory Rate 18 18 Blood Pressure 153/97 H 149/94 H Pulse Oximetry 97 97 Oxygen Delivery Room Air 08/04/23 08:00 08/04/23 08:00 08/04/23 10:01 Temperature Pulse Rate 180 H 177 H Pulse Rate [Left Pedal (Dorsalis Pedis) Palpa
[2023-08-04 17:05] LABS: Glucose Point of Care 209 mg/dl (65-105)
[2023-08-04] MEDS: METOPROLOL SUCCINATE EXT REL 50 MG TABCR PO (17:10)
[2023-08-05] VITALS: PULSE 85
[2023-08-05 04:00] VITALS: PULSE 103
[2023-08-05] MEDS: oxyCODONE HCL (*CRX) 5 MG TAB IR PO ×3 (04:02→12:01)
[2023-08-05] MEDS: ACETAMINOPHEN 500 MG TABLET 1000 MG PO ×2 (04:02→09:24)
[2023-08-05 04:58] LABS: Glucose Point of Care 212 mg/dl (65-105)
[2023-08-05 05:33] VITALS: BP 132/91; PULSE 83; RESP 20; TEMP 36.8; O2SAT 99
[2023-08-05] MEDS: GABAPENTIN 300 MG CAPSULE PO ×2 (05:45→12:01)
[2023-08-05 05:48] LABS: Basophils Percent Auto 0.2 % (0.2-1.2); Eosinophils Percent Auto 0.8 % (0-4.4); Hemoglobin 8.6 g/dL (14.0-18.0); Immature Granulocyte Absolute 0.03 K/mm3 (0.00-0.031); Immature Granulocyte Percent A 0.6 % (0-0.5); Immature Platelet Fraction Pct 9.8 % (0.9-11.2); Lymphocytes Absolute Auto 1.03 K/mm3 (0.9-3.2); Lymphocytes Percent Auto 19.5 % (18.3-44.2); Mean Corpuscular HGB Conc 34.4 g/dl (32-36); Mean Corpuscular Volume 101.6 fl (80-100); Mean Platelet Volume 11.6 fl (7.4-10.4); Monocytes Absolute Auto 0.9 K/mm3 (0.1-0.6); Monocytes Percent Auto 17.6 % (2.6-8.5); Neutrophils Absolute Auto 3.3 K/mm3 (1.3-6.7); Neutrophils Percent Auto 61.3 % (45.5-73.1); Platelet Count Result 124 k/mm3 (150-375); Red Blood Count 2.46 M/mm3 (4.6-6.20); Red Cell Distribution Width 10.7 % (11.5-14.5); White Blood Count 5.3 K/mm3 (4.5-10.0)
[2023-08-05 06:19] LABS: Alanine Aminotransferase 29 U/L (6-50); Alkaline Phosphatase 97 U/L (38-126); Anion Gap 4 mmol/L (4-12); Aspartate Amino Transferase 69 U/L (17-59); Bilirubin,Total 1.8 mg/dL (0.2-1.3); Blood Urea Nitrogen 12 mg/dL (9-20); Carbon Dioxide 30 mmol/L (22-30); Chloride 94 mmol/L (98-107); Estimated CRCL calculation 145 ml/min; Estimated Glomerular Filt Rate > 60; Glucose 207 mg/dL (65-110); Magnesium 1.3 mg/dL (1.6-2.3); Potassium 4.4 mmol/L (3.4-5.0); Sodium 128 mmol/L (137-145)
[2023-08-05 06:44] LABS: Albumin Level 3.2 g/dL (3.5-5.1)
[2023-08-05 08:00] VITALS: PULSE 76; RESP 18; O2SAT 96
[2023-08-05 08:04] VITALS: PULSE 80
[2023-08-05] MEDS: FOLIC ACID 1 MG TABLET PO (08:08)
[2023-08-05] MEDS: CHOLECALCIFEROL 1,000 UNITS TABLET 2000 UNITS PO (08:08)
[2023-08-05 08:09] VITALS: PULSE 80
[2023-08-05] MEDS: APIXABAN 2.5 MG TABLET PO (08:09)
[2023-08-05] MEDS: METOPROLOL SUCCINATE EXT REL 50 MG TABCR PO (08:09)
[2023-08-05] MEDS: CALCIUM CITRATE 315 MG/VITAMIN D 6.25 MCG (250 UNITS) TAB 1 TABLET PO (08:09)
[2023-08-05] MEDS: CEFDINIR 300 MG CAPSULE PO (08:09)
[2023-08-05] MEDS: THIAMINE HCL 100 MG TABLET PO (08:10)
[2023-08-05] MEDS: PANTOPRAZOLE 40 MG TABLET PO (08:10)
[2023-08-05] MEDS: polyethylene glycoL 3350 17 GM POWD.PACK PO (08:11)
[2023-08-05 08:42] LABS: Glucose Point of Care 207 mg/dl (65-105)
[2023-08-05] MEDS: INSULIN ASPART (*BKC) 100 UNITS/ML SUB-Q (09:23)
--- NOTE | 2023-08-05 09:49 | PM.DS ---
DS: Admitting Diagnosis Discharge Date 08/05/23 Admitting Diagnosis Closed intertrochanteric fracture of left hip Dehydration Syncope Hypo magnesemia ETOH abuse Tobacco dependence Vitamin-D deficiency Diabetes mellitus DS: Summary Hospital Course Reason for hospitalization: Closed intertrochanteric fracture of left hip Dehydration Syncope Hypo magnesemia ETOH abuse Tobacco dependence Vitamin-D deficiency Diabetes mellitus Hospital Course: 08/01: Patient is a 42 year old male how presented to the ED via EMS after a fall at home.? Patient stated he was taking out his trash when he became dizzy and did not remember falling, when he cam to it he had severe pain to his left hip and was unable to ambulate.? Patient reports a past medical history of diabetes, HTN, neuropathy, and ETOH abuse.? In the ED patient was found to have a comminuted LT intertrochanteric hip fracture.? Patient denied CP, SOB, N/V, fever, or chills, and dizziniess has resolved. Labs remarkable for mag 1.1 Hgb 11.9, AST 101 and T-ricardo 2.7, otherwise unremarkable.? Patient seen by Dr. Mcguire with ortho and surgery scheduled for 1600 today.? Patient reported 4-6 drinks a day of liqour but states he has never had withdrawal symptoms in the past currently with no evidence of withdrawal.? Patient was admitted to IMU, will initiate CIWA, pain control, and hydration pending surgery. 08/02: Patient post-op day one doing well and tolerating PT/OT with mild but controlled pain. ? No other complaints at this time.? CC consulted for joshua Abel plan will be discharge to home with O/P PT/OT.?? 08/03: Called by nursing staff patient with rapid HR 180 sustained, stat ekg? and transformation specialist placed EKG showing SVT 166.? Patient denied CP, SOB or dizziness at time of event reports he has had previous episodes of rapid heart rate at home and he just rest and it goes away after an hour.? Lopressor IV 5mg given and 10mg cardizem IVP convert back to 89 SR.? Ordered TSH and echo with consult to cardiology may need holter monitor at discharge. Hyponatremia 128 and mag 1.3 replenished with 2 gram and monitor NA.? Hgb stable and pancytopenia secondary to his alcoholism.? 08/04: Heart rate remains stable. Patient was placed on metoprolol 50 mg daily which he is tolerating well. He denies any new complaints today. Labs today show hemoglobin of 8.6, platelet count 124, sodium 128, chloride 94, blood sugar to 0 7-212, magnesium 1.3, total bili 1.6, AST 69, ALT 29. He is stable for discharge at this time. He will need to follow up with Cardiology 2 weeks. Also need to follow up with the orthopedic surgeon 2 weeks and his primary in 1 week. He will need an event monitor upon discharge. Final diagnosis: Status post open reduction internal fixation left hip intratrochanteric fracture, dehydration, syncope, electrolyte imbalance, alcohol abuse, hyponatremia, vitamin-D deficiency Status at Discharge Cognitive/behavioral status at discharge: Alert and oriented x3 Functional status at discharge: independent ambulation Overall status at discharge: patient is progressing back to baseline Time Spent with Patient Time attestation: Total time spent providing and/or coordinating discharge services: Time spent: Greater than 30 minutes Exam Narrative: General: In no acute distress, well nourished Head: atraumatic, no encephalopathy Eyes: EOMI, PERRLA, sclera clear ENT: moist mucous membranes, nasal passages clear Neck: supple, no JVD, no adenopathy, trachea midline Cardiac: Normal S1 and S2. No murmur, gallops or friction rubs, peripheral pulses intact. Respiratory: Lungs clear to auscultation, no adventitious lung sounds, currently on room air Gastrointestinal: soft, non-distended, non-tender, normoactive bowel sounds. : voiding without difficulty. Extremities: moves all extremities well, no edema, good ROM, strength 5/5 Skin: Left hip incision with katie covered with dressing, bruising noted to left hip and
--- NOTE | 2023-08-05 11:42 | PM.PNORT ---
Progress Note: A&P Assessment and Plan (1) Closed intertrochanteric fracture of left hip: Qualifiers: Encounter type: initial encounter Fracture alignment: displaced Qualified Code(s): S72.142A - Displaced intertrochanteric fracture of left femur, initial encounter for closed fracture Code(s): S72.142A - Displaced intertrochanteric fracture of left femur, initial encounter for closed fracture Status: Acute Assessment and Plan: Patient is postop day 3 after open reduction internal fixation of left basicervical femoral neck fracture which was very comminuted with intertrochanteric extension. Nursing Manager saw him yesterday about the episode of supraventricular tachycardia. I reviewed his discharge medications and instructions. His hemoglobin is unchanged 8.6 compared with 8.8 yesterday and his platelets are up today to 124 white count now in the normal range at 5.3. Use complete Ashley alert and oriented. He does not show any signs of alcohol withdrawal. He is able to stand up touch weight-bearing on the left quite well. His wound is dry. I reviewed the instructions on wound care with him. I reviewed again with him that he should not smoker or drink for the reasons we have discussed. He seems very sincere and his response is indicating that this will experience has been a wake-up call for him including the cardiac issues which are yet another reason for him to avoid drinking and to stop smoking. Will see him in 2 weeks to assess his progress the office. Subjective Subjective Date/Time Seen: 08/05/23 11:42 Objective Data Vital Signs Vital Signs: Vital Signs - 24 hr 08/04/23 13:30 08/04/23 12:00 08/04/23 16:00 Temperature 36.3 C L Pulse Rate 87 Pulse Rate [Left Pedal (Dorsalis Pedis) Palpation] 98 98 Respiratory Rate 16 Blood Pressure 127/96 H 127/96 H 127/96 H Pulse Oximetry 96 Oxygen Delivery 08/04/23 17:10 08/04/23 16:00 08/04/23 20:00 Temperature Pulse Rate 99 Pulse Rate [Left Pedal (Dorsalis Pedis) Palpation] Respiratory Rate 18 Blood Pressure Pulse Oximetry 96 Oxygen Delivery Room Air 08/04/23 20:00 08/04/23 22:00 08/05/23 00:00 Temperature 36.5 C Pulse Rate 94 93 85 Pulse Rate [Left Pedal (Dorsalis Pedis) Palpation] Respiratory Rate 20 Blood Pressure 143/90 H Pulse Oximetry 98 Oxygen Delivery 08/05/23 04:00 08/05/23 05:33 08/05/23 08:09 Temperature 36.8 C Pulse Rate 103 H 83 80 Pulse Rate [Left Pedal (Dorsalis Pedis) Palpation] Respiratory Rate 20 Blood Pressure 132/91 H Pulse Oximetry 99 Oxygen Delivery 08/05/23 08:00 08/05/23 08:00 Temperature Pulse Rate 76 Pulse Rate [Left Pedal (Dorsalis Pedis) Palpation] Respiratory Rate 18 Blood Pressure Pulse Oximetry 96 Oxygen Delivery Room Air Intake/Output Intake/Output: Intake & Output 08/02/23 08/03/23 08/04/23 08/05/23 23:59 23:59 23:59 23:59 Intake Total 3150 4051.7 1790 1690 Output Total 0 3384 463 6478 Balance 3150 3050.7 890 665 Meds/Results Medications: Active Medications Generic Name Dose Route Start Last Admin Trade Name Freq PRN Reason Stop Dose Admin Acetaminophen 1,000 mg 08/02/23 22:00 08/05/23 09:24 Acetaminophen 500 Mg Tablet PO 1,000 mg Q6H ANKIT Administration Apixaban 2.5 mg 08/03/23 09:00 08/05/23 08:09 Apixaban 2.5 Mg Tablet PO 2.5 mg Q12HR ANKIT Administration Calcium Citrate 1 tablet 08/03/23 09:00 08/05/23 08:09 Calcium Citrate 315 Mg/Vitamin D 6.25 Mcg (250 Units) Tab PO 1 tablet BID ANKIT Administration Cefdinir 300 mg 08/03/23 21:00 08/05/23 08:09 Cefdinir 300 Mg Capsule PO 300 mg Q12HR ANKIT Administration Dextrose 12.5 gm 08/02/23 08:07 Dextrose 50% 25 Gm/50 Ml Syringe IV PUSH PRN PRN Hypoglycemia Protocol Ergocalciferol 50,000 units 08/02/23 09:00 08/02/23 23:18 Ergocalciferol 50,000 Units Capsule PO 09/06/23 09:01 5
--- NOTE | 2023-08-05 13:28 | PC.NURSE ---
Patient refused for us to take him to get his monitor car operator on discharge. Patient states he will reschedule it. Patient sent with his order.
== END 2023-08-05 13:25 | disposition home or self-care (01) | DRG 481 ==
LOC: ANHED 03:15 → ANHIMU 03:59 → ANH3MED 08-03 15:23
PROVIDERS: Nurse Practitioner Family; Orthopaedic Surgery; Admitting Provider Internal Medicine; Emergency Provider Physician Assistant; Visit Provider Nurse Practitioner Acute Care
PROC: 0QS734Z Reposition Left Upper Femur with Internal Fixation Device, Percutaneous Approach (ICD-10-PCS; CPT 27245; principal; 2023-08-02 16:00)
DX: S72.142A Displaced intertrochanteric fracture of left femur, initial encounter for closed fracture (principal); D61.818 Other pancytopenia; E44.0 Moderate protein-calorie malnutrition; I47.10 Supraventricular tachycardia, unspecified; E87.1 Hypo-osmolality and hyponatremia; Z68.1 Body mass index [BMI] 19.9 or less, adult; I10 Essential (primary) hypertension; E86.0 Dehydration; E83.42 Hypomagnesemia; E55.9 Vitamin D deficiency, unspecified; E11.9 Type 2 diabetes mellitus without complications; R55 Syncope and collapse; F10.10 Alcohol abuse, uncomplicated; F12.90 Cannabis use, unspecified, uncomplicated; Z72.0 Tobacco use
CPT/HCPCS: 36415; 70450; 71045; 72125; 73502; 73700; 80053; 80061; 80307; 81001; 82010; 82306; 82550; 82948; 83036; 83735; 84100; 84443; 84484; 85025; 85027; 85055; 85610; 85730; 86850; 86900; 86901; 93005; 93306; 96361; 96365; 96366; 96367; 96375; 96376; 97116; 97161; 97165; 97530; 97535; 99199; 99285; A9270; C1713; C1769; C9113; G0378; J0690; J1100; J1170; J1815; J1885; J2060; J2250; J2270; J2371; J2405; J2704; J3010; J3370; J3475; J7030; J7120

== ENCOUNTER 2023-08-09 09:53 | Outpatient (CLI) | payer BC, SELFPAY ==
--- NOTE | ~2023-08-09 | US_ITS ---
EXAMINATION: US venous doppler [facility] DATE: 08/09/2023 10:51 INDICATION: Left lower limb pain, swelling and erythema post recent hip surgery TECHNIQUE: Grayscale ultrasound images without and with compression and Doppler ultrasound images of the left lower extremity veins were obtained. COMPARISON: None. FINDINGS: The visualized portions of left common femoral vein, profunda (deep) femoral vein, femoral vein, popl iteal vein, peroneal veins, posterior tibial veins, gastrocnemius vein and greater saphenous vein out flow are patent. Subcutaneous edema at the left thigh. IMPRESSION: 1. No deep venous thrombosis in the left lower limb. Reviewed, dictated and finalized at location A.
== END 2023-08-09 09:54 | disposition home or self-care (01) ==
PROVIDERS: Visit Provider Orthopaedic Surgery
DX: R60.0 Localized edema (principal)
CPT/HCPCS: 93971

== ENCOUNTER 2023-08-18 13:03 | Outpatient (CLI) | payer BC, SELFPAY ==
--- NOTE | ~2023-08-18 | US_ITS ---
EXAMINATION: US venous doppler [facility] DATE: 08/18/2023 13:40 INDICATION: Left lower limb swelling TECHNIQUE: Grayscale ultrasound images without and with compression and Doppler ultrasound images of the left lower extremity veins were obtained. COMPARISON: 08/09/2023 FINDINGS: The visualized portions of left common femoral vein, profunda (deep) femoral vein, femoral vein, popl iteal vein, peroneal veins, posterior tibial veins and greater saphenous vein outflow are patent. IMPRESSION: 1. No deep venous thrombosis in the left lower limb. Reviewed, dictated and finalized at location A.
== END 2023-08-18 13:04 | disposition home or self-care (01) ==
PROVIDERS: Visit Provider Orthopaedic Surgery
DX: R60.0 Localized edema (principal)
CPT/HCPCS: 93971

== ENCOUNTER 2023-10-13 10:25 | Outpatient (CLI) | payer BC, SELFPAY ==
[2023-10-13 11:09] LABS: Basophils Percent Auto 0.6 % (0.2-1.2); Eosinophils Absolute Auto 0.1 K/mm3 (0-0.3); Eosinophils Percent Auto 0.9 % (0-4.4); Hematocrit 36.3 % (42.0-52.0); Hemoglobin 12.1 g/dL (14.0-18.0); Immature Granulocyte Absolute 0.01 K/mm3 (0.00-0.031); Immature Granulocyte Percent A 0.1 % (0-0.5); Lymphocytes Absolute Auto 2.28 K/mm3 (0.9-3.2); Lymphocytes Percent Auto 33.8 % (18.3-44.2); Mean Corpuscular HGB Conc 33.3 g/dl (32-36); Mean Corpuscular Hemoglobin 32.1 pg (26-34); Mean Corpuscular Volume 96.3 fl (80-100); Mean Platelet Volume 10.4 fl (7.4-10.4); Monocytes Absolute Auto 0.6 K/mm3 (0.1-0.6); Monocytes Percent Auto 8.3 % (2.6-8.5); Neutrophils Absolute Auto 3.8 K/mm3 (1.3-6.7); Neutrophils Percent Auto 56.3 % (45.5-73.1); Platelet Count Result 269 k/mm3 (150-375); Red Blood Count 3.77 M/mm3 (4.6-6.20); Red Cell Distribution Width 12.4 % (11.5-14.5); White Blood Count 6.8 K/mm3 (4.5-10.0)
[2023-10-13 11:10] LABS: INR 1.1; Prothrombin Time 14.1 Seconds (11.1-14.7)
[2023-10-13 11:11] LABS: Partial Thromboplastin Time 33.6 Seconds (22.3-36.8)
[2023-10-13 11:48] LABS: Alanine Aminotransferase 20 U/L (6-50); Albumin Level 3.9 g/dL (3.5-5.1); Alkaline Phosphatase 188 U/L (38-126); Anion Gap 10 mmol/L (4-12); Aspartate Amino Transferase 32 U/L (17-59); Bilirubin,Total 0.8 mg/dL (0.2-1.3); Blood Urea Nitrogen 9 mg/dL (9-20); Calcium 9.6 mg/dL (8.4-10.2); Carbon Dioxide 29 mmol/L (22-30); Chloride 99 mmol/L (98-107); Estimated Glomerular Filt Rate > 60; Glucose 157 mg/dL (65-110); Potassium 3.1 mmol/L (3.4-5.0); Sodium 138 mmol/L (137-145)
[2023-10-13 14:09] LABS: Erythrocyte Sedimentation Rate 32 mm/hr (0-20)
[2023-10-14 10:01] LABS: CRP 5.3 mg/dL (<1.0)
[2023-10-14 11:53] LABS: Hemoglobin A1C 8.1 % (<5.7)
== END 2023-10-13 10:26 | disposition home or self-care (01) ==
LOC: ANHLAB 10:26
PROVIDERS: Visit Provider Orthopaedic Surgery
DX: F10.20 Alcohol dependence, uncomplicated (principal); E11.9 Type 2 diabetes mellitus without complications
CPT/HCPCS: 36415; 80053; 83036; 85025; 85610; 85652; 85730; 86140

== ENCOUNTER 2023-10-27 13:34 | Outpatient (CLI) | payer BC, SELFPAY ==
--- NOTE | ~2023-10-27 | CT_ITS ---
Procedure: CT hip LT wo con Ordering provider: Larry Mcguire MD History: . S72.042K - Displaced fracture of base of neck of left fem... . Comparison: August 02, 2023 Technique: Thin slice axial CT of the No IV contrast was given. Sagittal and coronal reformatted imag es were also obtained and reviewed. Radiation reduction technique utilized. DLP is 450.98 mGy-cm. Findings: BONES: A fracture of the femoral neck is seen near to the base of the neck. Fixation by plate and scr ews is noted. gap is still seen in the fracture area. Lucency around one of the screws in the femoral head is noted JOINT SPACES: Normal. SOFT TISSUES: Ossification is seen around the area of the fracture. IMPRESSION: Fracture at the base of the femoral neck with fixation by plate and screws. Lucency around one of the screws is noted in the femoral head area with a sharp outline. . This may be postoperative change but infection cannot be excluded. Clinical correlation advised. Ossification seen around the area of the fracture with a gap seen in the fracture. Reviewed, dictated and finalized at location A. IMPRESSION: Fracture at the base of the femoral neck with fixation by plate and screws. Rogelio ency around one of the screws is noted in the femoral head area with a sharp ou tline. . This may be postoperative change but infection cannot be excluded. Clinical c orrelation advised. Ossification seen around the area of the fracture with a gap seen in the fractu re.
== END 2023-10-27 13:35 | disposition home or self-care (01) ==
PROVIDERS: Visit Provider Orthopaedic Surgery
DX: S72.042 Displaced fracture of base of neck of left femur (principal); X58.XXXD Exposure to other specified factors, subsequent encounter
CPT/HCPCS: 73700

== ENCOUNTER 2023-11-01 13:36 | Outpatient (CLI) | payer BC, SELFPAY ==
--- NOTE | ~2023-11-01 | XR_ITS ---
EXAMINATION: XR lg joint inject/asp w image DATE: 11/01/2023 14:19 INDICATION: Left hip pain. TECHNIQUE: A time-out was performed to verify the patient's name, date of , and procedure to b e performed. The procedure including the risks, benefits, and alternatives was discussed with the pat ient. Risks discussed included bleeding and infection. The patient understood the risks and agreed to proceed. The skin overlying the left hip joint was prepped and draped in usual sterile fashion. An esthetic was administered with 1% lidocaine subcutaneously. An 18 G needle was advanced under fluoro scopic guidance into the joint at multiple locations. No fluid could be aspirated. The needle was rem jacquelyn and the entry site was cleaned and dressed. There were no immediate complications. Fluoroscopy exposure time was 0.1 minutes. The total number of images was 2. COMPARISON: CT 10/27/23, 08/02/23 FINDINGS: Real-time fluoroscopy demonstrates the needle in the left hip joint. There is a fracture of left femoral neck with fixation with multiple screws with change in the screw positions from the gareth or exam. IMPRESSION: 1. Fluoroscopy guided left hip joint aspiration yielding no fluid. 2. Left femoral neck fracture with internal fixation with interval change in positioning of the screw s, consistent with loosening. Reviewed, dictated and finalized at location A. IMPRESSION: 1. Fluoroscopy guided left hip joint aspiration yielding no fluid. 2. Left femoral neck fracture with internal fixation with interval change in po sitioning of the screws, consistent with loosening.
== END 2023-11-01 13:37 | disposition home or self-care (01) ==
LOC: ANHIMG 13:39
PROVIDERS: Visit Provider Orthopaedic Surgery
DX: M25.552 Pain in left hip (principal)
CPT/HCPCS: 20610; 77002

== ENCOUNTER 2023-11-08 09:01 | Outpatient (CLI) | payer BC, SELFPAY ==
--- NOTE | ~2023-11-08 | US_ITS ---
EXAMINATION: US joint non [facility] DATE: 11/08/2023 10:21 INDICATION: Displaced fracture of base of left femoral neck. TECHNIQUE: Multiple grayscale and Doppler ultrasound images of the left lower limb were obtained. I p ersonally scanned the patient after the technologist. COMPARISON: CT 10/27/2023 FINDINGS: There is hypoechoic soft tissue lateral to proximal left femur, consistent with surgical ch asia. There is no hip joint effusion. IMPRESSION: 1. No hip joint effusion. The aspiration was canceled. Reviewed, dictated and finalized at location A.
== END 2023-11-08 09:02 | disposition home or self-care (01) ==
LOC: ANHIMG 09:05
PROVIDERS: Visit Provider Orthopaedic Surgery
DX: S72.042 Displaced fracture of base of neck of left femur (principal); X58.XXXD Exposure to other specified factors, subsequent encounter
CPT/HCPCS: 76882

== ENCOUNTER 2023-12-08 14:13 | Outpatient (CLI) | payer BC, SELFPAY ==
--- NOTE | ~2023-12-08 | US_ITS ---
EXAMINATION:US venous doppler LE LT INDICATION:Left lower extremity edema TECHNIQUE: Multiple grayscale, color flow and Doppler images of the left lower extremity deep venous systems were obtained and reviewed. COMPARISON:08/18/2023 FINDINGS: The common femoral, superficial femoral and popliteal veins demonstrate normal respiratory variation, augmentation and compressibility. Color flow is also seen within the posterior tibial, pe roneal, greater saphenous and profunda veins. IMPRESSION: 1: No lower extremity deep venous thrombosis. Reviewed, dictated and finalized at location B.
== END 2023-12-08 14:14 | disposition home or self-care (01) ==
LOC: GOSHIMG 14:13
PROVIDERS: PCP Orthopaedic Surgery; Visit Provider Orthopaedic Surgery
DX: M79.89 Other specified soft tissue disorders (principal); R60.0 Localized edema
CPT/HCPCS: 93971